=== PATIENT | female | born 1975 ===

== ENCOUNTER 2016-07-14 07:16 | Day surgery (SDC) | payer OTHER ==
[2016-07-14 07:48] VITALS: BMI 25.4
[2016-07-14] MEDS ORDERED: Midazolam 2 MG/2 ML VIAL ONE (09:19)
[2016-07-14] MEDS ORDERED: Propofol 10 mg/ml Inj (20 ML) ONE (09:19)
[2016-07-14 09:51] VITALS: O2SAT 100
[2016-07-14 10:07] VITALS: PULSE 73
[2016-07-14 10:54] VITALS: BP 95/63; RESP 20; TEMP 97.1
== END 2016-07-14 10:53 | disposition home or self-care (01) ==
LOC: C.ENDO 07:16
PROVIDERS: ATTEND Internal Medicine Gastroenterology
DX: K29.70 Gastritis, unspecified, without bleeding (principal); R10.13 Epigastric pain; Z87.11 Personal history of peptic ulcer disease

== ENCOUNTER 2016-08-07 09:47 | Emergency (ER) | payer OTHER ==
[2016-08-07 09:51] VITALS: BMI 26.2
[2016-08-07 09:53] VITALS: BP 99/64; PULSE 77; RESP 18; TEMP 97.5; O2SAT 95
== END 2016-08-07 11:25 | disposition left against medical advice (07) ==
LOC: C.ER 09:47
DX: N63 Unspecified lump in breast (principal); Z02.9 Encounter for administrative examinations, unspecified

== ENCOUNTER 2016-11-11 07:27 | Emergency (ER) | payer OTHER ==
[2016-11-11 07:28] VITALS: BMI 26.2
[2016-11-11 07:35] VITALS: TEMP 98.3
[2016-11-11] MEDS ORDERED: Lidocaine 5% Patch TD STA (07:56)
[2016-11-11] MEDS ORDERED: Lidocaine 5% Patch TD ONE (08:02)
--- NOTE | 2016-11-11 08:09 | C.PDOC ---
History Of Present Illness 41 year old female with history of herniated disk and chronic back pain complains of low back pain which radiates down the left leg up to the back of knee. Patient states the back pain started 4 days ago and was mild and dull, gradually worsened and 2 days ago after getting out of bed developed shooting pain down the leg. She has been taking aleve and flexeril with minimal relief. Denies any injury, incontinence, numbness, weakness. Time Seen by Provider: 11/11/16 07:46 Chief Complaint (Nursing): Lower Extremity Problem/Injury History Per: Patient History/Exam Limitations: no limitations Onset/Duration Of Symptoms: Days Current Symptoms Are (Timing): Still Present Quality Of Discomfort: Dull, Aching Severity: Moderate Past Medical History Reviewed: Historical Data, Nursing Documentation, Vital Signs Vital Signs: Last Vital Signs Temp 98.3 F 11/11/16 07:35 Pulse 85 11/11/16 09:06 Resp 18 11/11/16 09:06 BP 105/64 11/11/16 09:06 Pulse Ox 98 11/11/16 09:06 - Medical History PMH: Anxiety, Arthritis, Asthma, Back Problems, Bronchitis, Gastritis, Personality Disorder Surgical History: - [facility] Procedures ANESTH INJECT SYMP NERVE (11/15/14) INCIS VULVA/PERINEUM NEC (01/10/15) INJECT/INFUSE NEC (02/03/14) Family History: States: No Known Family Hx - Social History Hx Tobacco Use: Yes Hx Alcohol Use: Yes Hx Substance Use: No - Immunization History Hx Tetanus Toxoid Vaccination: Yes Hx Influenza Vaccination: Yes Hx Pneumococcal Vaccination: Yes Review Of Systems Except As Marked, All Systems Reviewed And Found Negative. Constitutional: Negative for: Fever Gastrointestinal: Negative for: Nausea, Vomiting Musculoskeletal: Positive for: Back Pain, Leg Pain Neurological: Negative for: Weakness, Numbness Physical Exam - Physical Exam Appears: Non-toxic, No Acute Distress Skin: Warm, Dry, No Rash Head: Atraumatic, Normacephalic Eye(s): bilateral: Normal Inspection Neck: Normal ROM, No Midline Cervical Tenderness, No Paracervical Tenderness Chest: Symmetrical Cardiovascular: Rhythm Regular, No Murmur Respiratory: Normal Breath Sounds, No Accessory Muscle Use Gastrointestinal/Abdominal: Bowel Sounds (active), Soft, No Tenderness, No Distention, No Guarding Back: Normal Inspection (no swelling, erythema or ecchymosis), No Decreased ROM , Paraspinal Tenderness (Lumbar), Straight Leg Raising (45 degrees on left side) Extremity: Normal ROM, No Deformity, No Swelling Neurological/Psych: Oriented x3, Normal Speech Gait: Steady ED Course And Treatment O2 Sat by Pulse Oximetry: 99 (room air ) Pulse Ox Interpretation: Normal Medical Decision Making Medical Decision Making: Impression: low back pain Plan: * Tylenol * Reassess and Disposition Progress: Patient treated with analgesics Disposition Counseled Patient/Family Regarding: Need For Followup, Rx Given - Disposition Referrals: Wilmer Enrique DO [Staff Provider] - Disposition: HOME/ ROUTINE Disposition Time: 09:05 Condition: GOOD Additional Instructions: Please apply patch to area of pain for 12 hours then remove until following day May take Tylenol or Motrin for pain as needed and muscle relaxant Follow up with your doctor or pain management if the pain persists Prescriptions: Lidocaine 5% [Lidoderm] 1 ea TD DAILY #10 patch Instructions: Lumbar Radiculopathy (ED) - POA Present On Arrival: None - Clinical Impression Clinical Impression: Lumbar radiculopathy
[2016-11-11 09:07] VITALS: BP 105/64; PULSE 85; RESP 18
[2016-11-11 09:12] VITALS: O2SAT 99
== END 2016-11-11 09:07 | disposition home or self-care (01) ==
LOC: C.ER 07:27
DX: M54.16 Radiculopathy, lumbar region (principal)
CPT/HCPCS: 96372; 99284; J1885

== ENCOUNTER 2017-01-01 11:54 | Emergency (ER) | payer OTHER ==
[2017-01-01 11:55] VITALS: BMI 26.2
[2017-01-01] MEDS ORDERED: Sodium Chloride 0.9% 1,000 ML IV ONE (13:41)
[2017-01-01] MEDS ORDERED: Sodium Chloride 0.9% 1,000 ML ONE (14:24)
[2017-01-01 14:27] LABS: BASO % 0.3 % (0.0-2.0); EOS # 0.1 K/uL (0.0-0.7); EOS % 1.6 % (0.0-4.0); HEMATOCRIT 38.7 % (34.0-47.0); LYMPH # 1.6 K/uL (1.0-4.3); LYMPH % 25.5 % (20.0-40.0); MEAN CELL VOLUME 95.2 fL (81.0-99.0); MEAN CORPUSCULAR HEMOGLOBIN 31.4 pg (27.0-31.0); MEAN PLATELET VOLUME 7.3 fL (7.2-11.7); MONO # 0.3 K/uL (0.0-0.8); MONO % 4.5 % (0.0-10.0); RED CELL DISTRIBUTION WIDTH 14.8 % (11.5-14.5); WHITE BLOOD COUNT 6.5 K/uL (4.8-10.8)
[2017-01-01 14:37] LABS: ALB/GLOB RATIO 1.4 (1.0-2.1); ALKALINE PHOSPHATASE 68 U/L (38-126); ALT/SGPT 31 U/L (9-52); AST/SGOT 23 U/L (14-36); BILIRUBIN,TOTAL 0.7 mg/dL (0.2-1.3); BLOOD UREA NITROGEN 11 mg/dL (7-17); CALCIUM 8.7 mg/dl (8.6-10.4); CARBON DIOXIDE 25 mmol/L (22-30); CHLORIDE 103 mmol/L (98-107); GFR AFRICAN-AMERICAN > 60; GLUCOSE,RANDOM 89 mg/dL (65-105); POTASSIUM 3.5 mmol/L (3.6-5.2); SODIUM 142 mmol/L (132-148); TOTAL PROTEIN 6.8 g/dL (6.3-8.3)
[2017-01-01 15:00] LABS: RBC URINE 3 /hpf (0-3); URINE BILIRUBIN NEGATIVE (NEGATIVE); URINE BLOOD NEGATIVE (NEGATIVE); URINE COLOR Yellow (YELLOW); URINE GLUCOSE (UA) NORMAL (Normal); URINE KETONE TRACE mg/dL (NEGATIVE); URINE LEUKOCYTE ESTERASE NEG Leu/uL (Negative); URINE PROTEIN NEGATIVE (NEGATIVE); URINE UROBILINOGEN NORMAL mg/dL (0.2-1.0); WBC URINE 1 /hpf (0-5)
--- NOTE | 2017-01-01 15:25 | C.PDOC ---
Time Seen by Provider: 01/01/17 13:10 Chief Complaint (Nursing): Abdominal Pain History Per: Patient, Family Onset/Duration Of Symptoms: Days (about 1 week), Waxing/Waning Current Symptoms Are (Timing): Still Present Severity: Moderate Location Of Pain/Discomfort: RUQ, RLQ Associated Symptoms: Nausea, Diarrhea Exacerbating Factors: Food Alleviating Factors: None Recent travel outside of the [place]: No Additional History Per: Prior Records Abnormal Vaginal Bleeding: No Past Medical History Reviewed: Historical Data, Nursing Documentation, Vital Signs Vital Signs: Last Vital Signs Temp 98.4 F 01/01/17 12:05 Pulse 87 01/01/17 12:05 Resp 17 01/01/17 12:05 BP 99/62 L 01/01/17 12:05 Pulse Ox 100 01/01/17 12:05 - Medical History PMH: Anxiety, Arthritis, Asthma, Back Problems, Bronchitis, Gastritis, Personality Disorder Surgical History: Endoscopy, - [facility] Procedures ANESTH INJECT SYMP NERVE (11/15/14) INCIS VULVA/PERINEUM NEC (01/10/15) INJECT/INFUSE NEC (02/03/14) Family History: States: Unknown Family Hx - Social History Hx Tobacco Use: Yes Hx Alcohol Use: Yes Hx Substance Use: No - Immunization History Hx Tetanus Toxoid Vaccination: Yes Hx Influenza Vaccination: Yes Hx Pneumococcal Vaccination: Yes Review Of Systems Except As Marked, All Systems Reviewed And Found Negative. Constitutional: Negative for: Fever Cardiovascular: Negative for: Chest Pain Respiratory: Negative for: Shortness of Breath Gastrointestinal: Positive for: Nausea, Abdominal Pain, Diarrhea. Negative for : Vomiting, Melena, Hematochezia, Hematemesis Genitourinary: Negative for: Dysuria Musculoskeletal: Positive for: Back Pain. Negative for: Neck Pain Skin: Negative for: Rash Neurological: Negative for: Weakness, Numbness, Seizures Physical Exam - Physical Exam Appears: Non-toxic, No Acute Distress Skin: Normal Color, Warm, Dry, No Rash Head: Atraumatic, Normacephalic Eye(s): bilateral: Normal Inspection, PERRL, EOMI Oral Mucosa: Moist Neck: Normal ROM, Supple Cardiovascular: Rhythm Regular Respiratory: Normal Breath Sounds, No Accessory Muscle Use Gastrointestinal/Abdominal: Soft, Tenderness (right sided), No Distention, No Guarding, No Rebound Extremity: Normal ROM Neurological/Psych: Oriented x3, Normal Motor, Normal Sensation ED Course And Treatment - Laboratory Results Result Diagrams: 01/01/17 14:23 01/01/17 14:23 Lab Interpretation: No Acute Changes Urine POC: Negative O2 Sat by Pulse Oximetry: 100 Pulse Ox Interpretation: Normal Progress Note: Pt feels much better and wants to go home. No abdominal pain or tenderness. Reassessment Condition: Improved Progress - Interventions Interventions:: Observation, Intravenous fluid - Medications Administered Oral: Other (Bentyl) Intravenous: Antiemetic, H-2 mary - Data Reviewed Data Reviewed: Lab, Old records - Patient Status Patient status: Mostly improved - Continuity of Care Discussed patient case with:: Patient, Family-HIPPA compliant, ED Nurse - Patient Plan Patient Plan: Discharge, F/U with PCP, Continue present meds Disposition Counseled Patient/Family Regarding: Studies Performed, Diagnosis, Need For Followup, Rx Given - Disposition Referrals: Kelin Sevilla MD [Staff Provider] - Disposition: HOME/ ROUTINE Disposition Time: 15:25 Condition: IMPROVED Additional Instructions: Drink plenty of fluids. Follow up with your Communications Engineering Technician within 1 week for further evaluation and treatment. Return to the ER if you develop fever, vomiting, bloody stools, worsening of symptoms or if you have any other concerns. Prescriptions: Dicyclomine [Bentyl] 20 mg PO QID PRN #20 tab PRN Reason: Irritable Bowel Symptoms L.acidoph,Paracasei, B.lactis [Probiotic] 1 each PO TID #30 capsule Metronidazole [Flagyl] 500 mg PO BID #14 tablet Pantoprazole Sodium [Protonix] 40 mg PO DAILY #14 ect Instructions: Abdominal Pain (ED) Forms: [employer] (Swiss) - Clinical Impression Clinical Impression: Diarrhea, Abdominal pain
[2017-01-01 15:46] VITALS: BP 91/66; PULSE 71; RESP 16; TEMP 98; O2SAT 99
== END 2017-01-01 15:46 | disposition home or self-care (01) ==
LOC: C.ER 11:54
DX: R10.11 Right upper quadrant pain (principal); R19.7 Diarrhea, unspecified
CPT/HCPCS: 80053; 81001; 83690; 84703; 85025; 96361; 96374; 96375; 99284; J2765; J7040

== ENCOUNTER 2017-03-20 07:43 | Day surgery (SDC) | payer OTHER ==
[2017-03-17 13:47] VITALS: BMI 27.6
[2017-03-20] MEDS ORDERED: Lactated Ringer's 1,000 ML IV ONE ×2 (10:45→13:00)
[2017-03-20] MEDS ORDERED: Propofol 10 mg/ml Inj (20 ML) ONE (10:46)
[2017-03-20] MEDS ORDERED: Midazolam 2 MG/2 ML VIAL ONE (10:46)
[2017-03-20] MEDS ORDERED: cefOXitin IV 1 gm in Dextrose 1 GM/50 ML BAG IVPB ONE (10:50)
[2017-03-20] MEDS ORDERED: Lidocaine Hydrochloride 5 ML INJ ONE (11:08)
[2017-03-20] MEDS ORDERED: HYDROmorphone 0.5 mg/0.5 ml ISec IVP PRN (11:24)
[2017-03-20 11:36] VITALS: O2SAT 100
[2017-03-20 13:33] VITALS: RESP 16
[2017-03-20 13:48] VITALS: BP 99/64; PULSE 84; TEMP 97.4
--- NOTE | 2017-03-27 08:50 | PCM.SURG1 ---
Surgeon's Initial Post Op Note - Surgeon's Notes Surgeon: dr jackson Legal Document Specialist: none Type of Anesthesia: General LMA Anesthesia Administered By: dr singh Pre-Operative Diagnosis: 41 yr aub r/o polyp Operative Findings: see the op reort Post-Operative Diagnosis: same with polyp Operation Performed: see the op report Specimen/Specimens Removed: ecc. emc. polyp Estimated Blood Loss: EBL {In ML}: 20 Blood Products Given: N/A Drains Used: No Drains Post-Op Condition: Good Date of Surgery/Procedure: 03/27/17 Time of Surgery/Procedure: 11:00
--- NOTE | 2017-03-27 18:57 | OP ---
PROCEDURE DATE: PREOPERATIVE DIAGNOSES: A 41-year-old with abnormal uterine bleeding and pelvic pain. POSTOPERATIVE DIAGNOSES: A 41-year-old with abnormal uterine bleeding and pelvic pain and an endometrial polyp on the posterior wall of the uterus. PROCEDURE PERFORMED: Dilation and curettage, hysteroscopy and MyoSure. SURGEON: Hugh Mccrary MD. NEEDLE LOOM SETTER SURGEON: None. TYPE OF ANESTHESIA: General anesthesia. ANESTHESIA ADMINISTERED BY: Dr. Mulligan. FINDINGS: Text. ESTIMATED BLOOD LOSS: 140 mL. COMPLICATIONS: None. DESCRIPTION OF PROCEDURE: After informed consent, the patient was brought to the operating room, placed on the table, general anesthesia was given. Once the anesthesia was given, the patient was prepped and draped in the normal sterile fashion. Anterior lip of the cervix was grasped with a tenaculum, gentle dilatation of the cervix was done. Hysteroscope was introduced and found polyp on the posterior wall of the uterus. After that, decision again was to use the MyoSure. MyoSure was used to remove the polyp. The pictures were taken before and after. After that, sharp curettage of anterior mcgregor of the uterus was done, then the cervical tissue was removed. After that, the hysteroscope was reintroduced and was found to be clean. The tenaculum was taken out. The patient tolerated the procedure well. Lap, sponge and instrument counts were correct x2. Hugh Mccrary MD
== END 2017-03-20 13:49 | disposition home or self-care (01) ==
LOC: C.SDS 07:43
PROVIDERS: ATTEND Obstetrics & Gynecology
DX: D25.9 Leiomyoma of uterus, unspecified (principal); N92.0 Excessive and frequent menstruation with regular cycle; N93.9 Abnormal uterine and vaginal bleeding, unspecified
CPT/HCPCS: 58563; 88305; J0694; J1100; J1170; J1885; J2250; J2405; J2704; J2765; J3010; J7120

== ENCOUNTER 2017-04-23 05:46 | Inpatient (IN) | payer OTHER ==
[2017-03-17 13:47] VITALS: BMI 27.6
[2017-04-23] MEDS ORDERED: Midazolam 2 MG/2 ML VIAL ONE (07:10)
[2017-04-23] MEDS ORDERED: Propofol 10 mg/ml Inj (20 ML) ONE (07:10)
[2017-04-23] MEDS ORDERED: Lactated Ringer's 1,000 ML IV ONE ×4 (07:43→11:41)
[2017-04-23] MEDS: cefOXitin IV 1 gm in Dextrose 2 GM/100 ML BAG IVPB ONE ×2 (07:45→07:55)
[2017-04-23] MEDS ORDERED: Methylene Blue 10 mg/mL(10ml) IV ONE (08:56)
[2017-04-23] MEDS ORDERED: Oxycodone/Acetaminophen 5/325 mg Tab PO PRN (09:23)
--- NOTE | 2017-04-23 09:27 | PCM.SURG1 ---
Surgeon's Initial Post Op Note - Surgeon's Notes Surgeon: dr jackson Invoice Machine Operator: dr laguna/dr sung Type of Anesthesia: General Endo Anesthesia Administered By: dr plata Pre-Operative Diagnosis: 41 yr pelvic pain pain and abnotrmal uterine vb Operative Findings: see the op report Post-Operative Diagnosis: same Operation Performed: total hystrectomy/b/l sapingectomy Specimen/Specimens Removed: uterus. b/l tubes. cervix Estimated Blood Loss: EBL {In ML}: 350 Blood Products Given: N/A Drains Used: No Drains Post-Op Condition: Good Date of Surgery/Procedure: 04/23/17 Time of Surgery/Procedure: 10:00
[2017-04-23] MEDS ORDERED: cefOXitin IV 1 gm in Dextrose 1 GM/50 ML BAG IVPB SCH (09:30)
[2017-04-23] MEDS ORDERED: HYDROmorphone 0.5 mg/0.5 ml ISec IVP PRN (09:45)
[2017-04-23] MEDS: Lactated Ringer's 1,000 ML IV SCH ×2 (11:50→18:04)
[2017-04-23] MEDS: Simethicone 80 mg Chewtab PO SCH ×3 (14:00→22:58)
[2017-04-23] MEDS: Oxycodone/Acetaminophen 5/325 mg Tab PO PRN (21:47)
[2017-04-24] MEDS: cefOXitin IV 1 gm in Dextrose 1 GM/50 ML BAG IVPB SCH ×2 (00:20→08:16)
[2017-04-24] MEDS: Oxycodone/Acetaminophen 5/325 mg Tab PO PRN ×4 (01:50→21:55)
[2017-04-24 07:28] LABS: HEMOGLOBIN 11.8 g/dL (11.0-16.0); MEAN CELL VOLUME 94.8 fL (81.0-99.0); MEAN CORPUSCULAR HEMOGLOBIN 32.5 pg (27.0-31.0); MEAN CORPUSCULAR HGB CONC 34.3 g/dL (33.0-37.0); MEAN PLATELET VOLUME 8.3 fL (7.2-11.7); RBC 3.61 Mil/uL (3.80-5.20); WHITE BLOOD COUNT 9.7 K/uL (4.8-10.8)
--- NOTE | 2017-04-24 08:28 | CP.PCM.PN ---
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 Mccrary's Service Patient was seen and examined at bedside. Patient reports she is ambulating, tolerating diet, voiding freely, and passing gas. Denied bowel movement. Pain is moderate/ severe - well controlled with pain medications. Denied fever, chills, headache, SOB, chest pain, abdominal pain, n/v/d, or urinary symptoms. Objective - Vital Signs/Intake and Output Vital Signs (last 24 hours): Temp Pulse Resp BP Pulse Ox 99.1 F 73 20 98/58 L 97 04/24/17 01:00 04/24/17 01:00 04/24/17 01:00 04/24/17 01:00 04/24/17 01:00 Intake and Output: 04/24/17 04/24/17 06:59 18:59 Output Total 400 Balance -400 - Medications Medications: Current Medications Bisacodyl (Dulcolax) 10 mg PO ONCE ONE Stop: 04/24/17 09:25 Ferrous Sulfate (Feosol) 325 mg PO DAILY [facility] Last Admin: 04/23/17 12:00 Dose: Not Given Hydromorphone/Sodium Chloride (Dilaudid Geodetic Surveyor Technologist) 6 mg IV Q4H PRN; Protocol PRN Reason: Pain, moderate (4-7) Last Admin: 04/23/17 12:30 Dose: 6 mg Lactated Ringer's (Lactated Ringer's) 1,000 mls @ 125 mls/hr IV .Q8H [facility] Last Admin: 04/23/17 18:04 Dose: 125 mls/hr Cefoxitin Sodium (Mefoxin Iv 1 Gm Duplex) 1 gm in 50 mls @ 50 mls/hr IVPB Q8H [facility] Stop: 04/24/17 09:29 Last Admin: 04/24/17 08:16 Dose: 50 mls/hr Ibuprofen (Motrin Tab) 600 mg PO Q4 PRN PRN Reason: Pain, Mild (1-3) Oxycodone/Acetaminophen (Percocet 5/325 Mg Tab) 1 tab PO Q4H PRN PRN Reason: Pain, moderate (4-7) Stop: 04/26/17 09:24 Oxycodone/Acetaminophen (Percocet 5/325 Mg Tab) 2 tab PO Q4H PRN PRN Reason: Pain, severe (8-10) Stop: 04/26/17 09:24 Last Admin: 04/24/17 07:05 Dose: 2 tab Simethicone (Mylicon Chew Tab) 80 mg PO QID [facility] Last Admin: 04/23/17 22:58 Dose: Not Given - Labs Labs: 04/24/17 07:18 - Constitutional Appears: No Acute Distress - Head Exam Head Exam: NORMAL INSPECTION, NORMOCEPHALIC - Eye Exam Eye Exam: EOMI, Normal appearance Pupil Exam: NORMAL ACCOMODATION - ENT Exam ENT Exam: Mucous Membranes Moist, Normal Exam - Respiratory Exam Respiratory Exam: Clear to Ausculation Bilateral, NORMAL BREATHING PATTERN - Cardiovascular Exam Cardiovascular Exam: REGULAR RHYTHM, RRR, +S1, +S2 - GI/Abdominal Exam GI & Abdominal Exam: Soft, Normal Bowel Sounds. absent: Distended, Tenderness Additional comments: Incision is clean/dry/ intact - Extremities Exam Extremities Exam: Normal Inspection. absent: Pedal Edema, Tenderness - Neurological Exam Neurological Exam: Alert, Awake, Oriented x3 - Psychiatric Exam Psychiatric exam: Normal Affect, Normal Mood - Skin Skin Exam: Dry, Intact, Normal Color, Warm Assessment and Plan - Assessment and Plan (Free Text) Assessment: 41 yo s/p total hysterectomy, bilateral salpingectomy 2/2 abnormal uterine bleeding, pelvic pain. Plan: S/P Hysterectomy, bilateral salpingectomy POD #1 Monitor Hemoglobin Cefoxitin x2 bags, LR @ 125cc/hr Motrin, Percocet PRN for pain Colace TID, Simethicone QID Prophylactic Measures DVT PPX: SCDs, encouraged ambulation DW Roxy Weinberg DO, PGY-1
[2017-04-24] MEDS ORDERED: Bisacodyl 5mg EC Tab PO ONE (09:24)
[2017-04-24] MEDS: Simethicone 80 mg Chewtab PO SCH ×4 (09:52→21:55)
--- NOTE | 2017-04-25 06:31 | CP.PCM.PN ---
Subjective - Date & Time of Evaluation Date of Evaluation: 04/25/17 Time of Evaluation: 07:30 - Subjective Subjective: pt was seen at bed side, c/o pain from last time. nbette with pain meds.no n.v, +flatus abd mild ten incision clean and dry ext no edema,no calf ten Objective - Vital Signs/Intake and Output Vital Signs (last 24 hours): Temp Pulse Resp BP Pulse Ox 98.1 F 73 20 95/60 L 98 04/24/17 20:00 04/24/17 20:00 04/24/17 20:00 04/24/17 20:00 04/24/17 20:00 Intake and Output: 04/24/17 04/25/17 18:59 06:59 Output Total 250 Balance -250 - Medications Medications: Current Medications Docusate Sodium (Colace) 100 mg PO TID [facility] Last Admin: 04/24/17 18:16 Dose: 100 mg Ferrous Sulfate (Feosol) 325 mg PO DAILY [facility] Last Admin: 04/24/17 09:52 Dose: 325 mg Hydromorphone/Sodium Chloride (Dilaudid Electroneurodiagnostic Technician) 6 mg IV Q4H PRN; Protocol PRN Reason: Pain, moderate (4-7) Last Admin: 04/23/17 12:30 Dose: 6 mg Lactated Ringer's (Lactated Ringer's) 1,000 mls @ 125 mls/hr IV .Q8H [facility] Last Admin: 04/23/17 18:04 Dose: 125 mls/hr Ibuprofen (Motrin Tab) 600 mg PO Q4 PRN PRN Reason: Pain, Mild (1-3) Last Admin: 04/24/17 18:16 Dose: 600 mg Oxycodone/Acetaminophen (Percocet 5/325 Mg Tab) 1 tab PO Q4H PRN PRN Reason: Pain, moderate (4-7) Stop: 04/26/17 09:24 Oxycodone/Acetaminophen (Percocet 5/325 Mg Tab) 2 tab PO Q4H PRN PRN Reason: Pain, severe (8-10) Stop: 04/26/17 09:24 Last Admin: 04/24/17 21:55 Dose: 2 tab Simethicone (Mylicon Chew Tab) 80 mg PO QID [facility] Last Admin: 04/24/17 21:55 Dose: 80 mg Zolpidem Tartrate (Ambien) 5 mg PO HS PRN PRN Reason: Insomnia - Labs Labs: 04/24/17 07:18 - GI/Abdominal Exam GI & Abdominal Exam: Soft, Tenderness (mild) Assessment and Plan - Assessment and Plan (Free Text) Assessment: 41 yr s/ toltal hystrectomy/b/l saplingectomy with pain Plan: plan pain meds emcourage ambulation cont post op care reat cbc/cmp anticipate discharge tomorrow
[2017-04-25] MEDS: Oxycodone/Acetaminophen 5/325 mg Tab PO PRN ×5 (06:32→22:50)
[2017-04-25 08:22] LABS: MEAN CELL VOLUME 95.1 fL (81.0-99.0); MEAN CORPUSCULAR HEMOGLOBIN 32.4 pg (27.0-31.0); MEAN CORPUSCULAR HGB CONC 34.1 g/dL (33.0-37.0); MEAN PLATELET VOLUME 8.2 fL (7.2-11.7); RBC 2.96 Mil/uL (3.80-5.20); RED CELL DISTRIBUTION WIDTH 14.2 % (11.5-14.5); WHITE BLOOD COUNT 7.2 K/uL (4.8-10.8)
[2017-04-25 08:25] LABS: HEMOGLOBIN 9.6 g/dL (11.0-16.0)
[2017-04-25 08:31] VITALS: O2SAT 99
[2017-04-25] MEDS: Simethicone 80 mg Chewtab PO SCH ×4 (10:24→22:58)
[2017-04-25] MEDS ORDERED: Influenza Vaccine 60 mcg/0.5 mL SYR (4YR UP) IM ONE (16:00)
[2017-04-26] MEDS: Oxycodone/Acetaminophen 5/325 mg Tab PO PRN (06:50)
[2017-04-26 07:46] VITALS: RESP 18
[2017-04-26 08:43] VITALS: BP 91/54; PULSE 87; TEMP 98
[2017-04-26] MEDS: Simethicone 80 mg Chewtab PO SCH (09:39)
--- NOTE | 2017-04-26 10:23 | CP.PCM.PN ---
Subjective - Date & Time of Evaluation Date of Evaluation: 04/26/17 Time of Evaluation: 10:20 - Subjective Subjective: Pt is s/p [place] with BSO, POD #2 clinically stable. Pt reports doing well, ambulating, tolerating po, passing gas. Pt reports adequate pain control with current medications. Objective - Vital Signs/Intake and Output Vital Signs (last 24 hours): Temp Pulse Resp BP Pulse Ox 98 F 87 18 91/54 L 99 04/26/17 08:00 04/26/17 08:00 04/26/17 08:00 04/26/17 08:00 04/26/17 08:00 - Medications Medications: Current Medications Docusate Sodium (Colace) 100 mg PO TID [facility] Last Admin: 04/26/17 09:39 Dose: 100 mg Ferrous Sulfate (Feosol) 325 mg PO DAILY [facility] Last Admin: 04/26/17 09:39 Dose: 325 mg Hydromorphone/Sodium Chloride (Dilaudid General Duty Nurse) 6 mg IV Q4H PRN; Protocol PRN Reason: Pain, moderate (4-7) Last Admin: 04/23/17 12:30 Dose: 6 mg Lactated Ringer's (Lactated Ringer's) 1,000 mls @ 125 mls/hr IV .Q8H [facility] Last Admin: 04/23/17 18:04 Dose: 125 mls/hr Ibuprofen (Motrin Tab) 600 mg PO Q4 PRN PRN Reason: Pain, Mild (1-3) Last Admin: 04/24/17 18:16 Dose: 600 mg Simethicone (Mylicon Chew Tab) 80 mg PO QID [facility] Last Admin: 04/26/17 09:39 Dose: 80 mg Zolpidem Tartrate (Ambien) 5 mg PO HS PRN PRN Reason: Insomnia Last Admin: 04/25/17 22:50 Dose: 5 mg - Labs Labs: 04/25/17 08:18 - Constitutional Appears: Well - Eye Exam Eye Exam: EOMI - Respiratory Exam Respiratory Exam: Clear to Ausculation Bilateral, NORMAL BREATHING PATTERN - Cardiovascular Exam Cardiovascular Exam: REGULAR RHYTHM - GI/Abdominal Exam GI & Abdominal Exam: Normal Bowel Sounds - Rectal Exam Rectal Exam: Deferred - Extremities Exam Extremities Exam: Normal Inspection - Neurological Exam Neurological Exam: Oriented x3 Assessment and Plan (1) Status post total abdominal hysterectomy Status: Resolved - Assessment and Plan (Free Text) Assessment: D/C home F/U with Dr Mccrary in 2 weeks Pelvic rest for 2 weeks. Plan: D/C Home.
--- NOTE | 2017-04-28 07:33 | OP ---
PROCEDURE DATE: 04/23/2017 PREOPERATIVE DIAGNOSIS: A 41-year-old 2, para 2 with abnormal uterine bleeding and pelvic pain. POSTOPERATIVE DIAGNOSIS: A 41-year-old 2, para 2 with abnormal uterine bleeding and pelvic pain. PROCEDURES PERFORMED: Total abdominal hysterectomy and bilateral salpingectomy. SURGEON: Hugh Mccrary M.D. MOTTLE LAY UP OPERATOR: Dr. Wells, and Dr. Angeles who were present throughout the surgery for retraction, exposure, and helping with the hysterectomy. TYPE OF ANESTHESIA: General anesthesia. ANESTHESIOLOGIST: Angel Purvis M.D. ESTIMATED BLOOD LOSS: 350 mL. COMPLICATIONS: None. DESCRIPTION OF PROCEDURE: After informed consent was obtained, the patient was brought to the operating room, placed on the table, where general anesthesia was given. Once the anesthesia was given, she was prepped and draped in the normal sterile fashion. At the site of the previous skin incision, an incision was made with a knife; the subcutaneous cut with a Bovie. The fascia was then excised on both the sides using curved Smith scissors. The fascia was from the site of the umbilicus and the rectus muscle. The rectus muscle was lifted up with two Allis scissors which was cut with a knife under the abdominal cavity. The uterus was about 8-week size. The ovaries were normal. The abdomen was packed with wet laps, four laps were placed and retractor was placed and the uterus was retracted out with a corkscrew. After that, the round ligament on the left side was taken out with a LigaSure, then there was a hole made in the peritoneum. Broad ligament was peritoneum. After that, the utero-ovarian ligament was taken with two Heaneys. It was cut and then suture tied up. The same thing was done on the right side. After that, the bladder flap was created, it was removed. Bladder was pushed down completely with the sponge and the stick till the pelvic visceral fascia was observed. After that, the uterine artery on the left side was taken down with two Heaneys and it was cut and suture tied up. The same thing was done on the left side. Then after that, the uterosacral ligament was taken with a Katina, it was cut and suture ligated. The same thing was done on the left side. After that, the uterosacral ligament was taken. After the cardinal ligament was taken; it was cut and suture ligated. After that, the Katina was placed and then was used and an incision was made and total hysterectomy was done. After total abdominal hysterectomy was done, it was sent to Pathology. After that, the stump was closed using 2-0 Vicryl in interrupted fashion. A lot of irrigation was done and found to be hemostatic. tubes on both sides were then taken out with a LigaSure, bilateral salpingectomy was done. A lot of irrigation was done and found to be hemostatic. After that, some FloSeal was placed and found to be hemostatic. All the laps were removed. was closed in a nonlocking fashion. Muscle was closed using 2-0 Vicryl in running interlocking fashion. The fascia was closed using #1 Vicryl in running interlocking fashion. Subcutaneous tissue was closed with 0 Vicryl in interrupted fashion. Skin was closed with 4-0 Monocryl on straight needle. Patient tolerated the procedure well. Lap, sponge, and instrument count were correct x2. Hugh Mccrary MD
== END 2017-04-26 10:23 | disposition home or self-care (01) | DRG 359 ==
LOC: C.9S 05:46 → C.4M 12:05
PROVIDERS: ADMIT Obstetrics & Gynecology; ATTEND Obstetrics & Gynecology
PROC: 0UT70ZZ Resection of Bilateral Fallopian Tubes, Open Approach (ICD-10-PCS; 2017-04-23)
PROC: 0UT90ZZ Resection of Uterus, Open Approach (ICD-10-PCS; principal; 2017-04-23 07:30)
DX: D25.9 Leiomyoma of uterus, unspecified (principal); N93.9 Abnormal uterine and vaginal bleeding, unspecified; R10.2 Pelvic and perineal pain

== ENCOUNTER 2017-04-29 14:21 | Emergency (ER) | payer OTHER ==
[2017-04-29 14:22] VITALS: BMI 27.6
[2017-04-29] MEDS ORDERED: Sodium Chloride 0.9% 1,000 ML IV ONE ×2 (16:16→19:17)
--- NOTE | 2017-04-29 16:24 | C.PDOC ---
History Of Present Illness 41 year old female presents to the ED for evaluation of severe pelvic pain. Patient underwent hysterectomy by Dr. Mccrary on 04/23 for abnormal uterine bleeding. Patient states she was able to have bowel movements for 2-3 days following the surgery, but has not been able to have a bowel movement or pass gas since then. Patient also noted blood in her urine and states she cannot feel the sensation to urinate. Patient reports chills at night, feels like she has a fever and has not been able to eat or drink. She states her pain is worse than any pain she experienced prior to the surgery and has been taking Percocet every 2 hours without relief. Patient denies nausea, vomiting, back pain. Time Seen by Provider: 04/29/17 16:01 Chief Complaint (Nursing): Abdominal Pain History Per: Patient History/Exam Limitations: no limitations Onset/Duration Of Symptoms: Days Current Symptoms Are (Timing): Still Present Radiation Of Pain To:: None Quality Of Discomfort: "Pain" Associated Symptoms: Fever, Chills, Constipation, Urinary Symptoms (blood in urine ). denies: Nausea, Vomiting, Back Pain Last Bowel Movement: Days Ago Additional History Per: Patient Past Medical History Reviewed: Historical Data, Nursing Documentation, Vital Signs Vital Signs: Last Vital Signs Temp 98.3 F 04/29/17 18:00 Pulse 86 04/29/17 18:00 Resp 18 04/29/17 18:00 BP 108/72 04/29/17 18:00 Pulse Ox 100 04/29/17 18:00 - Medical History PMH: Anxiety (WHEN AWAKEENED FROM ANESTHESIA), Arthritis, Asthma, Back Problems , Bronchitis, Gastritis, Personality Disorder Denies: Chronic Kidney Disease Surgical History: Endoscopy, - [facility] Procedures ANESTH INJECT SYMP NERVE (11/15/14) INCIS VULVA/PERINEUM NEC (01/10/15) INJECT/INFUSE NEC (02/03/14) RESECTION OF BILATERAL FALLOPIAN TUBES, OPEN APPROACH (04/23/17) RESECTION OF UTERUS, OPEN APPROACH (04/23/17) Family History: States: Unknown Family Hx - Social History Hx Tobacco Use: Yes Hx Alcohol Use: No Hx Substance Use: No - Immunization History Hx Tetanus Toxoid Vaccination: No Hx Influenza Vaccination: Yes Hx Pneumococcal Vaccination: No Review Of Systems Constitutional: Positive for: Fever, Chills Gastrointestinal: Positive for: Constipation. Negative for: Nausea, Vomiting Genitourinary: Positive for: Pelvic Pain Physical Exam - Physical Exam Appears: Non-toxic, Other (uncomfortable ) Skin: Normal Color, Warm, Dry Head: Atraumatic, Normacephalic Eye(s): bilateral: Normal Inspection Oral Mucosa: Moist Neck: Supple Chest: Symmetrical, No Deformity, No Tenderness Cardiovascular: Rhythm Regular, No Murmur Respiratory: Normal Breath Sounds, No Rales, No Rhonchi, No Wheezing Gastrointestinal/Abdominal: No Bowel Sounds, Soft, Tenderness (diffuse), Guarding, No Rebound, Other (well-healing wound. no erythema or drainage. ) Extremity: Normal ROM, Capillary Refill (less than 2 seconds ) Neurological/Psych: Oriented x3, Normal Speech, Normal Cognition Gait: Steady ED Course And Treatment - Laboratory Results Result Diagrams: 04/29/17 17:36 04/29/17 17:36 Lab Interpretation: No Acute Changes O2 Sat by Pulse Oximetry: 100 (on RA) Pulse Ox Interpretation: Normal - Other Rad Obstructive series X-Ray: Viewed By Me, Read By Radiologist Interpretation: No evidence of obstruction. Normal gas pattern. Increased stool. Progress Note: Bloodwork, urinalysis, Obstructive Series abdomen ordered and reviewed. Morphine IVP and IV Fluids administered. Reevaluation Time: 20:51 Reassessment Condition: Improved Disposition Counseled Patient/Family Regarding: Studies Performed, Diagnosis, Need For Followup - Disposition Referrals: Hugh Mccrary MD [Staff Provider] - Disposition: HOME/ ROUTINE Disposition Time: 20:51 Condition: IMPROVED Additional Instructions: Ensure to drink plenty of fluids and be as active as possible. Encourage plenty of walking and movement. Try Milk of Magnesia at bedtime to help with your bowel movements in the morning. Instructions: Gas and Bloating (ED), Abdominal Pain (ED), Constipation (ED) Forms: [facility] (Swiss) - Clinical Impression Clinical Impression: Abdominal pain, Constipation - Scribe Statement The provider has reviewed the documentation as recorded by the Scribe (Keya Alfaro) Provider Attestation: All medical record entries made by the Scribe were at my direction and personally dictated by me. I have reviewed the chart and agree that the record accurately reflects my personal performance of the history, physical exam, medical decision making, and the department course for this patient. I have also personally directed, reviewed, and agree with the discharge instructions and disposition.
[2017-04-29] MEDS ORDERED: Sodium Chloride 0.9% 1,000 ML ONE (16:33)
--- NOTE | 2017-04-29 17:33 | RAD ---
PROCEDURE: Radiographs of the chest and abdomen (obstructive series) HISTORY: abd pain COMPARISON: CT abdomen pelvis with contrast performed 12/17/16 TECHNIQUE: AP radiograph of the chest, with upright and supine radiographs of the abdomen. FINDINGS: CHEST: Examination limited by habitus. The cardiomediastinal silhouette appears within normal limits of size. Please note that chest x-ray has limited sensitivity for the detection of pulmonary masses. ABDOMEN AND PELVIS: Nonobstructive bowel gas pattern. No definite free air. No acute osseous abnormality is detected. IMPRESSION: No acute findings identified as above.
[2017-04-29 17:43] LABS: BASO % 0.6 % (0.0-2.0); EOS # 0.1 K/uL (0.0-0.7); EOS % 1.5 % (0.0-4.0); HEMOGLOBIN 12.5 g/dL (11.0-16.0); LYMPH # 1.5 K/uL (1.0-4.3); LYMPH % 21.9 % (20.0-40.0); MEAN CELL VOLUME 95.2 fL (81.0-99.0); MEAN CORPUSCULAR HEMOGLOBIN 31.4 pg (27.0-31.0); MEAN CORPUSCULAR HGB CONC 32.9 g/dL (33.0-37.0); MEAN PLATELET VOLUME 7.5 fL (7.2-11.7); MONO # 0.7 K/uL (0.0-0.8); NEUT # 4.7 K/uL (1.8-7.0); RBC 3.97 Mil/uL (3.80-5.20); RED CELL DISTRIBUTION WIDTH 14.5 % (11.5-14.5); WHITE BLOOD COUNT 7.1 K/uL (4.8-10.8)
[2017-04-29 18:01] VITALS: TEMP 98.3
[2017-04-29 18:11] LABS: ALB/GLOB RATIO 1.3 (1.0-2.1); ALBUMIN 3.9 g/dL (3.5-5.0); ALT/SGPT 31 U/L (9-52); AST/SGOT 25 U/L (14-36); BLOOD UREA NITROGEN 16 mg/dL (7-17); CALCIUM 8.1 mg/dl (8.6-10.4); GFR AFRICAN-AMERICAN > 60; GFR NON-AFRICAN AMERICAN > 60
[2017-04-29 18:59] LABS: SQUAMOUS EPITHIAL 1 /hpf (0-5); URINE BACTERIA RARE (<OCC); URINE BILIRUBIN NEGATIVE (NEGATIVE); URINE BLOOD 2+ (NEGATIVE); URINE CLARITY Clear (Clear); URINE COLOR Yellow (YELLOW); URINE GLUCOSE (UA) NORMAL (Normal); URINE LEUKOCYTE ESTERASE NEG Leu/uL (Negative); URINE NITRATE NEGATIVE (NEGATIVE); URINE PROTEIN NEGATIVE (NEGATIVE)
[2017-04-29] MEDS ORDERED: Magnesium Hydroxide Susp 30 ml UD PO STA (19:48)
[2017-04-29] MEDS ORDERED: Magnesium Hydroxide Susp 30 ml UD ONE (20:22)
[2017-04-29 21:06] VITALS: BP 105/72; PULSE 92; RESP 16; O2SAT 98
== END 2017-04-29 21:05 | disposition home or self-care (01) ==
LOC: C.ER 14:21
DX: K59.00 Constipation, unspecified (principal); R10.2 Pelvic and perineal pain; Z87.891 Personal history of nicotine dependence
CPT/HCPCS: 74022; 80053; 81001; 85025; 96361; 96374; 99284; J2270; J7040

== ENCOUNTER 2017-05-17 11:48 | Emergency (ER) | payer OTHER ==
[2017-05-17 11:48] VITALS: BMI 27.6
--- NOTE | 2017-05-17 12:45 | C.PDOC ---
History Of Present Illness 41-YEAR-OLD FEMALE, PRESENTS TO THE EMERGENCY DEPARTMENT WITH COMPLAINTS OF NEW ONSET R FACIAL SWELLING SINCE YESTERDAY. DENIES DENTAL PAIN, FEVER, CHILLS, TRAUMA. NO ITCH. EXAM NONTOXIC HEENT +R LOWER FACIAL SWELL NONPITTING NONTEND; NO DENTAL TEND. B/L EYES NEG SKIN NO RASH, ERYTHEMA REMAINDER NEG Time Seen by Provider: 05/17/17 12:09 Chief Complaint (Nursing): ENT Problem History Per: Patient History/Exam Limitations: no limitations Past Medical History Reviewed: Historical Data, Nursing Documentation, Vital Signs Vital Signs: Last Vital Signs Temp 98.4 F 05/17/17 14:25 Pulse 85 05/17/17 14:25 Resp 18 05/17/17 14:25 BP 92/60 L 05/17/17 14:25 Pulse Ox 99 05/17/17 16:53 - Medical History PMH: Anxiety (WHEN AWAKEENED FROM ANESTHESIA), Arthritis, Asthma, Back Problems , Bronchitis, Gastritis, Personality Disorder Surgical History: Endoscopy, - [facility] Procedures ANESTH INJECT SYMP NERVE (11/15/14) INCIS VULVA/PERINEUM NEC (01/10/15) INJECT/INFUSE NEC (02/03/14) RESECTION OF BILATERAL FALLOPIAN TUBES, OPEN APPROACH (04/23/17) RESECTION OF UTERUS, OPEN APPROACH (04/23/17) Family History: States: No Known Family Hx - Social History Hx Tobacco Use: Yes Hx Alcohol Use: Yes Hx Substance Use: No - Immunization History Hx Tetanus Toxoid Vaccination: No Hx Influenza Vaccination: Yes (03/2017) Hx Pneumococcal Vaccination: No Review Of Systems Except As Marked, All Systems Reviewed And Found Negative. Constitutional: Negative for: Fever, Chills Cardiovascular: Negative for: Chest Pain, Palpitations Respiratory: Negative for: Shortness of Breath Gastrointestinal: Negative for: Nausea, Vomiting Physical Exam - Physical Exam Appears: Non-toxic, No Acute Distress Skin: Warm, Dry, No Rash Head: Atraumatic, Normacephalic, Other (+R LOWER FACIAL SWELL NONPITTING NONTEND ; NO DENTAL TEND) Eye(s): bilateral: Normal Inspection, PERRL, EOMI Nose: Normal Oral Mucosa: Moist Lips: Normal Appearing, Other (NO ANGIOEDEMA) Neck: Normal ROM Chest: Symmetrical Cardiovascular: Rhythm Regular, No Murmur Respiratory: Normal Breath Sounds, No Accessory Muscle Use Extremity: Normal ROM Neurological/Psych: Oriented x3, Normal Speech ED Course And Treatment - Laboratory Results Result Diagrams: 05/17/17 13:09 05/17/17 13:09 Urine POC: Negative O2 Sat by Pulse Oximetry: 99 (on RA) Pulse Ox Interpretation: Normal Progress - Re-Evaluation Re-evaluation Note: 05/17/17 16:52 EXAM UNCH PRIOR NARD. PENDING CALLBACK [facility] 05/17/17 16:57 D/W DR AVERY [facility] ADVISES FOR TRANSFER TO [facility]. - Data Reviewed Data Reviewed: Lab, Diagnostic imaging - Continuity of Care Discussed pt. case with senior staff consultant/specialty: Other ([facility]) Disposition Counseled Patient/Family Regarding: Studies Performed, Diagnosis - Disposition Disposition: Trans to Other Acute Care Hosp Disposition Time: 16:58 Condition: STABLE Forms: [facility] (Italian) - POA Present On Arrival: None - Clinical Impression Clinical Impression: Dental abscess - Scribe Statement The provider has reviewed the documentation as recorded by the Scribe (Ian Lovell) All medical record entries made by the Scribe were at my direction and personally dictated by me. I have reviewed the chart and agree that the record accurately reflects my personal performance of the history, physical exam, medical decision making, and the department course for this patient. I have also personally directed, reviewed, and agree with the discharge instructions and disposition.
[2017-05-17 13:17] LABS: BASO % 0.6 % (0.0-2.0); EOS # 0.1 K/uL (0.0-0.7); EOS % 1.1 % (0.0-4.0); HEMOGLOBIN 11.4 g/dL (11.0-16.0); LYMPH # 1.5 K/uL (1.0-4.3); MEAN CELL VOLUME 93.2 fL (81.0-99.0); MEAN CORPUSCULAR HEMOGLOBIN 31.2 pg (27.0-31.0); MEAN CORPUSCULAR HGB CONC 33.5 g/dL (33.0-37.0); MEAN PLATELET VOLUME 7.2 fL (7.2-11.7); MONO # 0.6 K/uL (0.0-0.8); MONO % 10.1 % (0.0-10.0); NEUT # 4.1 K/uL (1.8-7.0); NEUT % 65.2 % (50.0-75.0); RBC 3.66 Mil/uL (3.80-5.20); RED CELL DISTRIBUTION WIDTH 14.2 % (11.5-14.5); WHITE BLOOD COUNT 6.3 K/uL (4.8-10.8)
[2017-05-17 13:28] LABS: BLOOD UREA NITROGEN 9 mg/dL (7-17); GFR AFRICAN-AMERICAN > 60; GFR NON-AFRICAN AMERICAN > 60
[2017-05-17] MEDS ORDERED: Iodixanol 320 mg/ml 150 ml Bottle IV ONE (14:04)
[2017-05-17 14:27] VITALS: RESP 18
[2017-05-17] MEDS ORDERED: MethylPREDNISolone 40 mg Vial IVP STA (15:20)
[2017-05-17] MEDS ORDERED: MethylPREDNISolone 40 mg Vial ONE (15:30)
--- NOTE | 2017-05-17 15:43 | CT ---
PROCEDURE: CT MAXILLOFACIAL BONES WITH CONTRAST HISTORY: R FACIAL SWELL RO ABSCESS COMPARISON: None. TECHNIQUE: Contiguous axial CT images of the maxillofacial bones were obtained following administration of IV contrast. Coronal and sagittal reformats were generated. Intravenous contrast Dose: 100 mL Visipaque 320 Radiation dose: Total exam DLP = 693.23 mGy-cm. This CT exam was performed using one or more of the following dose reduction techniques: Automated exposure control, adjustment of the mA and/or kV according to patient size, and/or use of iterative reconstruction technique. FINDINGS: NASAL BONES: Unremarkable. ORBITS: Unremarkable. PARANASAL SINUSES/ MASTOIDS: Chronic right maxillary sinusitis. MAXILLA: Extensive apical lucency about right 2nd maxillary molar consistent with apical abscess. There is cortical breakthrough best evident on series 602, image 27. There is cortical breakthrough of 8 roof of the right 3rd maxillary molar, likely from prior infection as there is no lucency surrounding this root currently. There is cellulitis over the right maxilla and mandible with associated thickening of the right latissimus muscle. There is no soft tissue abscess appreciated. Please note that evaluation is somewhat limited due to beam hardening artifact arising from metallic dental fillings. MANDIBLE/ TEMPOROMANDIBULAR JOINTS: Unremarkable. SKULL BASE: Unremarkable. TEMPORAL BONES: Middle ears and mastoid grossly unremarkable. OTHER FINDINGS: Mildly enlarged right-sided cervical nodes involving the level 1 and 2 nodes. Unremarkable parotid and submandibular glands. IMPRESSION: Apical abscess about the right 2nd maxillary molar with adjacent cellulitis but no evidence of soft tissue abscess. Probable sympathetic right maxillary sinusitis, chronic.
[2017-05-17] MEDS ORDERED: Clindamycin 300 MG in Sodium Chloride 0.9% 50 ML IV STA (16:53)
[2017-05-17 17:43] VITALS: BP 109/77; PULSE 91; TEMP 97.8; O2SAT 100
== END 2017-05-17 17:55 | disposition short-term general hospital (02) ==
LOC: C.ER 11:48
DX: K04.7 Periapical abscess without sinus (principal)
CPT/HCPCS: 70481; 80048; 85025; 96365; 96375; 99283; J1885; J2920; Q9967

== ENCOUNTER 2017-08-10 14:42 | Emergency (ER) | payer SELFPAY ==
[2017-08-10 15:00] VITALS: BMI 25.4
[2017-08-10] MEDS ORDERED: Sodium Chloride 0.9% 1,000 ML IV ONE (16:00)
[2017-08-10 16:14] LABS: HCG,QUALITATIVE URINE NEGATIVE (NEGATIVE)
[2017-08-10] MEDS ORDERED: Sodium Chloride 0.9% 1,000 ML ONE (16:15)
[2017-08-10 16:16] LABS: SQUAMOUS EPITHIAL 6 /hpf (0-5); URINE BACTERIA RARE (<OCC); URINE BILIRUBIN NEGATIVE (NEGATIVE); URINE BLOOD NEGATIVE (NEGATIVE); URINE CLARITY Hazy (Clear); URINE COLOR Yellow (YELLOW); URINE GLUCOSE (UA) NORMAL (Normal); URINE LEUKOCYTE ESTERASE NEG Leu/uL (Negative); URINE PROTEIN 1+ mg/dL (NEGATIVE); URINE UROBILINOGEN NORMAL mg/dL (0.2-1.0)
[2017-08-10 16:29] LABS: BASO # 0.1 K/uL (0.0-0.2); BASO % 0.8 % (0.0-2.0); EOS # 0.2 K/uL (0.0-0.7); EOS % 1.5 % (0.0-4.0); LYMPH # 1.9 K/uL (1.0-4.3); LYMPH % 18.5 % (20.0-40.0); MEAN CORPUSCULAR HEMOGLOBIN 31.5 pg (27.0-31.0); MEAN CORPUSCULAR HGB CONC 34.3 g/dL (33.0-37.0); MEAN PLATELET VOLUME 7.6 fL (7.2-11.7); MONO # 0.9 K/uL (0.0-0.8); MONO % 8.4 % (0.0-10.0); NEUT # 7.3 K/uL (1.8-7.0); NEUT % 70.8 % (50.0-75.0); RBC 4.12 Mil/uL (3.80-5.20); RED CELL DISTRIBUTION WIDTH 15.5 % (11.5-14.5); WHITE BLOOD COUNT 10.4 K/uL (4.8-10.8)
[2017-08-10 16:39] LABS: ALB/GLOB RATIO 1.2 (1.0-2.1); ALBUMIN 4.1 g/dL (3.5-5.0); ALT/SGPT 20 U/L (9-52); AST/SGOT 29 U/L (14-36); BLOOD UREA NITROGEN 18 mg/dL (7-17); CALCIUM 8.8 mg/dl (8.6-10.4); GFR AFRICAN-AMERICAN > 60; GFR NON-AFRICAN AMERICAN > 60; LIPASE 158 U/L (23-300)
--- NOTE | 2017-08-10 17:14 | CT ---
PROCEDURE: CT scan of the abdomen pelvis dated 08/10/2017. HISTORY: Right sided flank, RLQ tenderness r/o stone COMPARISON: Comparison made with prior CT scan abdomen pelvis 12/17/2016. TECHNIQUE: Contiguous axial images of the abdomen and pelvis. Oral contrast was administered. No IV contrast given. Coronal and Sagittal reformats generated. Radiation dose: Total exam DLP = This CT exam was performed using one or more of the following dose reduction techniques: Automated exposure control, adjustment of the mA and/or kV according to patient size, and/or use of iterative reconstruction technique. FINDINGS: LOWER THORAX: Minimal the passive/dependent type atelectasis both posterior lower lung zones. Lung bases otherwise clear. No infiltrate effusion or basilar pneumothorax. Heart size within range of normal. . Small hiatal hernia. LIVER: Unremarkable. No gross lesion or ductal dilatation. GALLBLADDER AND BILE DUCTS: Gallbladder is incompletely distended which in part accounts for thick-walled appearance. Findings likely due to nonfasting state. PANCREAS: Unremarkable. No mass. No ductal dilatation. SPLEEN: Unremarkable. No splenomegaly. ADRENALS: Unremarkable. KIDNEYS AND URETERS: Unremarkable. No stone or hydronephrosis. BLADDER: Urinary bladder incompletely distended which may in part account for slight thick-walled appearance. Cystitis not excluded. . REPRODUCTIVE: Interval hysterectomy. Large apparently partially septated cystic structure right aspect of the pelvis that measures approximately 5.7 x 4.3 cm consistent with an ovarian cyst. Pelvic ultrasound followup could be performed if necessary. APPENDIX: Normal-appearing appendix best seen on axial image number [id number]. BOWEL: Evaluation of the bowel is somewhat limited due to the lack of oral contrast material. . The stomach is partially distended with food debris liquid and air. The visualized loops of small bowel exhibit normal contour and caliber. No evidence of acute mechanical small bowel obstruction. Stool and air seen throughout the large bowel. There does appear to be an occasional colonic diverticulum the sigmoid and distal descending colon however no radiographic evidence of acute diverticulitis. PERITONEUM: Unremarkable. No fluid collection. No free air. LYMPH NODES: Unremarkable. No enlarged lymph nodes. VASCULATURE: Unremarkable. No aortic aneurysm. BONES: No fracture or destructive lesion. OTHER FINDINGS: None. IMPRESSION: Status post hysterectomy. Large right ovarian cyst. Followup ultrasound could be performed if necessary. No evidence of nephrolithiasis or hydronephrosis. No evidence of acute appendicitis. Few scattered colonic diverticula without radiographic evidence of acute diverticulitis.
--- NOTE | 2017-08-10 17:31 | C.PDOC ---
History Of Present Illness <Taylor Marvin - Last Filed: 08/10/17 19:10> <Latasha Glass - Last Filed: 08/11/17 04:43> 41-year-old female, s/p hysterectomy, presents to the emergency department with complaints right sided back/flank pain that started at 7:30pm last night. Pain is persistent in nature, radiating to right groin. Pain worsens with movement and palpation. patient notes associated nausea and episodes of non-bloody/non- bilious vomiting. Patient denies fevers, chills, chest pain, shortness of breath , or any other associated symptoms. No other complaints at this time. (Taylor Marvin) History Per: Patient History/Exam Limitations: no limitations Onset/Duration Of Symptoms: Days <Taylor Marvin - Last Filed: 08/10/17 19:10> <Latasha Glass - Last Filed: 08/11/17 04:43> Time Seen by Provider: 08/10/17 15:37 Chief Complaint (Nursing): Female Genitourinary Past Medical History Reviewed: Historical Data, Nursing Documentation, Vital Signs - Medical History PMH: Anxiety (WHEN AWAKEENED FROM ANESTHESIA), Arthritis, Asthma, Back Problems , Bronchitis, Gastritis, Personality Disorder Denies: Chronic Kidney Disease Surgical History: Endoscopy, Family History: States: No Known Family Hx - Social History Hx Tobacco Use: Yes Hx Alcohol Use: No Hx Substance Use: No - Immunization History Hx Tetanus Toxoid Vaccination: No Hx Influenza Vaccination: Yes (03/2017) Hx Pneumococcal Vaccination: No <Taylor Marvin - Last Filed: 08/10/17 19:10> Vital Signs: Last Vital Signs Temp 97.9 F 08/10/17 20:20 Pulse 86 08/10/17 20:20 Resp 16 08/10/17 20:20 BP 130/81 08/10/17 20:20 Pulse Ox 100 08/10/17 20:20 - [facility] Procedures ANESTH INJECT SYMP NERVE (11/15/14) INCIS VULVA/PERINEUM NEC (01/10/15) INJECT/INFUSE NEC (02/03/14) RESECTION OF BILATERAL FALLOPIAN TUBES, OPEN APPROACH (04/23/17) RESECTION OF UTERUS, OPEN APPROACH (04/23/17) Review Of Systems Constitutional: Negative for: Fever, Chills Respiratory: Negative for: Cough, Shortness of Breath Gastrointestinal: Positive for: Nausea, Vomiting Genitourinary: Positive for: Other ((+)foul odor urine). Negative for: Dysuria , Hematuria, Vaginal Discharge, Vaginal Bleeding Musculoskeletal: Positive for: Back Pain Skin: Negative for: Rash <Taylor Marvin - Last Filed: 08/10/17 19:10> Physical Exam - Physical Exam Appears: Non-toxic, No Acute Distress Skin: Normal Color, Warm, Dry, No Rash Head: Atraumatic, Normacephalic Eye(s): bilateral: PERRL Nose: Normal Oral Mucosa: Moist Lips: Normal Appearing Neck: Normal ROM Chest: Symmetrical Cardiovascular: Rhythm Regular, No Murmur Respiratory: Normal Breath Sounds, No Accessory Muscle Use Gastrointestinal/Abdominal: Soft, Tenderness (RLQ), No Guarding, No Rebound Back: CVA Tenderness (right) Extremity: Normal ROM, No Deformity, No Swelling Neurological/Psych: Oriented x3, Normal Speech, Normal Motor Gait: Steady <Taylor Marvin - Last Filed: 08/10/17 19:10> ED Course And Treatment - Laboratory Results Result Diagrams: 08/10/17 16:24 08/10/17 16:24 O2 Sat by Pulse Oximetry: 100 (RA) Pulse Ox Interpretation: Normal Progress Note: CT scan ordered. which shows enlarged right ovarian. Pelvic US ordered to r/o torsion Reevaluation Time: 18:00 (No improvement, Morphine ordered) Reassessment Condition: Unchanged <Taylor Marvin - Last Filed: 08/10/17 19:10> - Laboratory Results Result Diagrams: 08/10/17 16:24 08/10/17 16:24 <Latasha Glass - Last Filed: 08/11/17 04:43> Medical Decision Making <Taylor Marvin - Last Filed: 08/10/17 19:10> <Latasha Glass - Last Filed: 08/11/17 04:43> Medical Decision Making: Plan: * CT Abd/Pel * CMP, Lipase * CBC * IVF, Toradol, Zofran * Urine Culture * UA/HCG (Taylor Marvin) Disposition - Disposition Disposition Time: 19:11 <Taylor Marvin - Last Filed: 08/10/17 19:10> <Latasha Glass - Last Filed: 08/11/17 04:43> - Disposition Referrals: Landy Del Valle MD [Staff Provider] - Disposition: HOME/ ROUTINE Condition: STABLE Prescriptions: Naproxen [Naprosyn] 500 mg PO BID #20 tablet Instructions: Ovarian Cysts, Ovarian Cyst Removal (DC) Forms: Work/School/Gym Excuse, [facility] (Azeri) - Clinical Impression Clinical Impression: Abdominal pain - Scribe Statement The provider has reviewed the documentation as recorded by the Scribe (Ian Lovell) <Taylor Marvin - Last Filed: 08/10/17 19:10> <Latasha Glass - Last Filed: 08/11/17 04:43> - Scribe Statement All medical record entries made by the Scribe were at my direction and personally dictated by me. I have reviewed the chart and agree that the record accurately reflects my personal performance of the history, physical exam, medical decision making, and the department course for this patient. I have also personally directed, reviewed, and agree with the discharge instructions and disposition. (Taylor Marvin) Physician Patient Turnover Patient Signed Over To: Latasha Glass Handoff Comments: Pending Ultrasound and disposition <Taylor Marvin - Last Filed: 08/10/17 19:10> Addendum <Taylor Marvin - Last Filed: 08/10/17 19:10> <Latasha Glass - Last Filed: 08/11/17 04:43> Addendum: 08/11/17 04:42 My sign out from ANYA Marvin was to check the pelvic US to r/o ovarian torsion.Study was neg for torsion,pt was released (Latasha Glass)
[2017-08-10] MEDS ORDERED: Morphine 4 MG/ML VIAL ONE (17:45)
[2017-08-10 18:16] VITALS: TEMP 97.9
[2017-08-10 19:12] VITALS: O2SAT 100
[2017-08-10 20:21] VITALS: BP 130/81; PULSE 86; RESP 16
--- NOTE | 2017-08-11 13:37 | US ---
Pelvic ultrasound History: Right pelvic pain. Comparison: None available. Technique: Real-time sonography was performed through the pelvis. Findings: Status post hysterectomy. Right ovary: 6.5 x 5.5 x 5.4 centimeters. Normal flow. Prominent septated cyst with thickened internal septation in the right ovary measuring 5.8 x 4.5 x 5.3 centimeters. Left ovary: 2.0 x 1.7 x 1.8 centimeters. Normal flow. No free fluid in the pelvic cul-de-sac. Impression: Prominent septated cyst in the right ovary measuring up to 5.8 centimeters. Follow-up ultrasound in a 4-6 week interval may be helpful if clinically indicated. These findings were preliminarily reported at 7:29 p.m. on 08/10/[address] Michael Albert from [facility].
== END 2017-08-10 20:22 | disposition home or self-care (01) ==
LOC: C.ER 14:42
DX: R10.31 Right lower quadrant pain (principal)
CPT/HCPCS: 74176; 76830; 76856; 80053; 81001; 83690; 84703; 85025; 87086; 96361; 96374; 96375; 99285; J1885; J2270; J2405; J7040

== ENCOUNTER 2017-08-12 10:38 | Emergency (ER) | payer OTHER ==
[2017-08-12 10:38] VITALS: BMI 25.4
[2017-08-12 11:09] VITALS: O2SAT 100
[2017-08-12] MEDS ORDERED: Sodium Chloride 0.9% 1,000 ML IV ONE (12:02)
[2017-08-12 12:29] LABS: BASO % 0.4 % (0.0-2.0); EOS # 0.1 K/uL (0.0-0.7); HEMOGLOBIN 13.2 g/dL (11.0-16.0); LYMPH # 1.1 K/uL (1.0-4.3); LYMPH % 20.8 % (20.0-40.0); MEAN CELL VOLUME 92.2 fL (81.0-99.0); MEAN CORPUSCULAR HEMOGLOBIN 31.4 pg (27.0-31.0); MEAN CORPUSCULAR HGB CONC 34.1 g/dL (33.0-37.0); MEAN PLATELET VOLUME 7.9 fL (7.2-11.7); MONO # 0.4 K/uL (0.0-0.8); MONO % 7.3 % (0.0-10.0); NEUT # 3.6 K/uL (1.8-7.0); NEUT % 69.5 % (50.0-75.0); RBC 4.21 Mil/uL (3.80-5.20); RED CELL DISTRIBUTION WIDTH 15.4 % (11.5-14.5); WHITE BLOOD COUNT 5.2 K/uL (4.8-10.8)
[2017-08-12 12:31] LABS: SQUAMOUS EPITHIAL 27 /hpf (0-5); URINE BACTERIA RARE (<OCC); URINE BILIRUBIN NEGATIVE (NEGATIVE); URINE BLOOD NEGATIVE (NEGATIVE); URINE CLARITY Hazy (Clear); URINE COLOR Yellow (YELLOW); URINE GLUCOSE (UA) NORMAL (Normal); URINE LEUKOCYTE ESTERASE TRACE Leu/uL (Negative); URINE PROTEIN NEGATIVE (NEGATIVE)
[2017-08-12] MEDS ORDERED: Sodium Chloride 0.9% 1,000 ML ONE (12:33)
[2017-08-12 12:46] LABS: ALB/GLOB RATIO 1.2 (1.0-2.1); ALBUMIN 3.9 g/dL (3.5-5.0); ALT/SGPT 25 U/L (9-52); AST/SGOT 31 U/L (14-36); BLOOD UREA NITROGEN 13 mg/dL (7-17); CALCIUM 8.8 mg/dl (8.6-10.4); GFR AFRICAN-AMERICAN > 60; GFR NON-AFRICAN AMERICAN > 60; LIPASE 82 U/L (23-300)
--- NOTE | 2017-08-12 14:20 | C.PDOC ---
History Of Present Illness 41-year-old female, s/p hysterectomy, presents to the emergency department with complaints right sided back/flank pain that started four days ago. Pain is persistent in nature, radiating to right groin. Pain worsens with movement and palpation. She was seem in ED two days ago, and diagnosed with ovarian cyst. Patient was discharged with outpatient f/u with OBGYN, but states pain has persisted, resulting in her returning to ED for further evaluation. Patient denies fevers, chills, chest pain, shortness of breath, or any other associated symptoms. No other complaints at this time. Time Seen by Provider: 08/12/17 11:31 Chief Complaint (Nursing): Abdominal Pain History Per: Patient History/Exam Limitations: no limitations Past Medical History Reviewed: Historical Data, Nursing Documentation, Vital Signs Vital Signs: Last Vital Signs Temp 97.8 F 08/12/17 15:36 Pulse 78 08/12/17 15:36 Resp 18 08/12/17 15:36 BP 96/68 L 08/12/17 15:36 Pulse Ox 100 08/12/17 15:36 - Medical History PMH: Anxiety (WHEN AWAKEENED FROM ANESTHESIA), Arthritis, Asthma, Back Problems , Bronchitis, Gastritis, Personality Disorder Denies: Chronic Kidney Disease Surgical History: Endoscopy, - [facility] Procedures ANESTH INJECT SYMP NERVE (11/15/14) INCIS VULVA/PERINEUM NEC (01/10/15) INJECT/INFUSE NEC (02/03/14) RESECTION OF BILATERAL FALLOPIAN TUBES, OPEN APPROACH (04/23/17) RESECTION OF UTERUS, OPEN APPROACH (04/23/17) Family History: States: No Known Family Hx - Social History Hx Tobacco Use: Yes Hx Alcohol Use: No Hx Substance Use: No - Immunization History Hx Tetanus Toxoid Vaccination: No Hx Influenza Vaccination: Yes (03/2017) Hx Pneumococcal Vaccination: No Review Of Systems Constitutional: Negative for: Fever, Chills Respiratory: Negative for: Cough, Shortness of Breath Gastrointestinal: Positive for: Nausea, Abdominal Pain Musculoskeletal: Positive for: Back Pain Skin: Negative for: Rash Neurological: Negative for: Weakness, Numbness, Headache, Dizziness Physical Exam - Physical Exam Appears: Non-toxic, No Acute Distress Skin: Warm, Dry, No Rash Head: Normacephalic Eye(s): bilateral: PERRL Nose: Normal Oral Mucosa: Moist Lips: Normal Appearing Neck: Normal ROM Cardiovascular: Rhythm Regular, No Murmur Respiratory: Normal Breath Sounds, No Accessory Muscle Use Gastrointestinal/Abdominal: Soft, Tenderness (mild, right-lower), No Guarding, No Rebound Extremity: Normal ROM, No Deformity, No Swelling Neurological/Psych: Oriented x3, Normal Speech ED Course And Treatment - Laboratory Results Result Diagrams: 08/12/17 12:15 08/12/17 12:15 Lab Interpretation: Normal Urine POC: Negative O2 Sat by Pulse Oximetry: 100 (RA) Pulse Ox Interpretation: Normal - CT Scan/US No standard instances Other Rad Studies (CT/US): Read By Radiologist, Radiology Report Reviewed CT/US Interpretation: FINDINGS: UTERUS: Surgically absent. RIGHT OVARY: Measure 6.2 x 6.1 x 5.8 cm, enlarged secondary to a complex cyst measuring 5.8 cm containing a septation and diffuse low-level internal echoes. Internal echoes are new compared to prior exam. Normal Doppler detected blood flow demonstrated to the ovary. LEFT OVARY: Measures 3.8 x 2.5 x 3 cm. Multiple follicles noted. Normal Doppler detected blood flow demonstrated to the ovary. FREE FLUID: No significant free fluid noted. OTHER FINDINGS: None. IMPRESSION: Complex right ovarian cyst measuring 5.8 cm. Findings may represent a hemorrhagic cyst or endometrioma. Followup pelvic ultrasound recommended in 6 weeks. Progress Note: Treated with IVF and toradol. Case discussed with Dr Mccrary who will evaluate in ED and request US Reassessment Condition: Improved - Physician Consult Information Physician Contacted: Hugh Mccrary Outcome Of Conversation: discharge to follow up as outpatient Disposition Discussed With Dr.: Hugh Mccrary Doctor Will See Patient In The: Office Counseled Patient/Family Regarding: Studies Performed, Diagnosis, Need For Followup - Disposition Referrals: Hugh Mccrary MD [Staff Provider] - Disposition: HOSPITALIZED Disposition Time: 15:30 Condition: STABLE Additional Instructions: Follow up with dr Mccrary at her office Prescriptions: Naproxen [Naprosyn] 1 tab PO BID PRN #25 tab PRN Reason: Pain oxyCODONE/Acetaminophen [Percocet 5/325 mg Tab] 1 tab PO QID PRN #10 tab PRN Reason: Pain Instructions: Ovarian Cysts Forms: [employer] (Welsh), Work Excuse - POA Present On Arrival: None - Clinical Impression Clinical Impression: Ovarian cyst, Abdominal pain - Scribe Statement The provider has reviewed the documentation as recorded by the Scribe (Ian Johnson) All medical record entries made by the Scribe were at my direction and personally dictated by me. I have reviewed the chart and agree that the record accurately reflects my personal performance of the history, physical exam, medical decision making, and the department course for this patient. I have also personally directed, reviewed, and agree with the discharge instructions and disposition.
--- NOTE | 2017-08-12 14:40 | US ---
HISTORY: vaginal bleeding. History hysterectomy. COMPARISON: Pelvic ultrasound 08/10/2017. TECHNIQUE: Grayscale and color Doppler sonographic images were obtained of the pelvis utilizing transvaginal approach. FINDINGS: UTERUS: Surgically absent. RIGHT OVARY: Measure 6.2 x 6.1 x 5.8 cm, enlarged secondary to a complex cyst measuring 5.8 cm containing a septation and diffuse low-level internal echoes. Internal echoes are new compared to prior exam. Normal Doppler detected blood flow demonstrated to the ovary. LEFT OVARY: Measures 3.8 x 2.5 x 3 cm. Multiple follicles noted. Normal Doppler detected blood flow demonstrated to the ovary. FREE FLUID: No significant free fluid noted. OTHER FINDINGS: None. IMPRESSION: Complex right ovarian cyst measuring 5.8 cm. Findings may represent a hemorrhagic cyst or endometrioma. Followup pelvic ultrasound recommended in 6 weeks.
[2017-08-12 15:40] VITALS: BP 96/68; PULSE 78; RESP 18; TEMP 97.8
== END 2017-08-12 15:36 | disposition home or self-care (01) ==
LOC: C.ER 10:38
DX: N83.209 Unspecified ovarian cyst, unspecified side (principal); R10.31 Right lower quadrant pain
CPT/HCPCS: 76830; 80053; 81001; 83690; 85025; 96361; 96374; 99285; J1885; J7040

== ENCOUNTER 2017-08-16 07:05 | Inpatient (IN) | payer OTHER ==
[2017-08-16 07:06] VITALS: BMI 25.4
[2017-08-16 08:05] LABS: BASO % 0.8 % (0.0-2.0); EOS # 0.2 K/uL (0.0-0.7); EOS % 3.6 % (0.0-4.0); HEMOGLOBIN 13.8 g/dL (11.0-16.0); LYMPH # 1.7 K/uL (1.0-4.3); LYMPH % 34.5 % (20.0-40.0); MEAN CELL VOLUME 92.5 fL (81.0-99.0); MEAN CORPUSCULAR HEMOGLOBIN 31.7 pg (27.0-31.0); MEAN CORPUSCULAR HGB CONC 34.3 g/dL (33.0-37.0); MEAN PLATELET VOLUME 7.5 fL (7.2-11.7); MONO # 0.4 K/uL (0.0-0.8); NEUT # 2.6 K/uL (1.8-7.0); NEUT % 53.1 % (50.0-75.0); NRBC % 0.1 % (0.0-2.0); RBC 4.37 Mil/uL (3.80-5.20); RED CELL DISTRIBUTION WIDTH 15.5 % (11.5-14.5)
[2017-08-16 08:15] LABS: INR 0.9
[2017-08-16 08:25] LABS: ALB/GLOB RATIO 1.3 (1.0-2.1); ALBUMIN 4.2 g/dL (3.5-5.0); ALT/SGPT 26 U/L (9-52); AST/SGOT 24 U/L (14-36); BLOOD UREA NITROGEN 14 mg/dL (7-17); CALCIUM 8.7 mg/dl (8.6-10.4); GFR AFRICAN-AMERICAN > 60; GFR NON-AFRICAN AMERICAN > 60
[2017-08-16] MEDS ORDERED: Midazolam 2 MG/2 ML VIAL ONE ×2 (09:48→11:02)
[2017-08-16] MEDS ORDERED: Propofol 10 mg/ml Inj (20 ML) ONE (09:48)
[2017-08-16] MEDS ORDERED: Rocuronium 10 mg/ml (5 ml) ONE (09:51)
--- NOTE | 2017-08-16 10:39 | CP.PCM.HP ---
History of Present Illness - History of Present Illness History of Present Illness: 41yr here cam woth c/o pain in the abdomen started 2 weeks ago and getting worse. pt taking pain meds and not working.pateint came to er for the same complain third time.no n/v, no vb. obhx 1 x /s, 1 x , 1 x still pmh den med pnv all tramadol psh ex lap hystrecomy, c/s x 1 soch smoking ciggrattes abd soft,mild tenderness on palpation ext no edema,no calf ten pelvic exam ext gen no less, right adenxal tenn sono right 5-6 cm hemmoragic cyst Present on Admission - Present on Admission Any Indicators Present on Admission: No History of DVT/PE: No History of Uncontrolled Diabetes: No Urinary Catheter: No Decubitus Ulcer Present: No Review of Systems - Gastrointestinal Gastrointestinal: Abdominal Pain Past Patient History - Infectious Disease Hx of Infectious Diseases: None - Past Medical History & Family History Past Medical History?: Yes - Past Social History Smoking Status: Light Smoker < 10 Cigarettes Daily - CARDIAC Hx Cardiac Disorders: Yes Hx Hypotension: Yes - PULMONARY Hx Asthma: Yes Hx Bronchitis: Yes - NEUROLOGICAL Hx Neurological Disorder: No - HEENT Hx HEENT Problems: No - RENAL Hx Chronic Kidney Disease: No - ENDOCRINE/METABOLIC Hx Endocrine Disorders: No - HEMATOLOGICAL/ONCOLOGICAL Hx Blood Disorders: No - INTEGUMENTARY Hx Dermatological Problems: No - MUSCULOSKELETAL/RHEUMATOLOGICAL Hx Arthritis: Yes - GASTROINTESTINAL Hx Gastritis: Yes - GENITOURINARY/GYNECOLOGICAL Hx Genitourinary Disorders: Yes (OVARIAN CYST FIBROID UTERUS) - PSYCHIATRIC Hx Anxiety: Yes (WHEN AWAKEENED FROM ANESTHESIA) Hx Substance Use: No - SURGICAL HISTORY Hx Surgeries: Yes Hx Hysterectomy: Yes - ANESTHESIA Hx Anesthesia: Yes Hx Anesthesia Reactions: Yes ( N/V, LOW B/P, PANIC ATTACKS) Hx Malignant Hyperthermia: No Meds Allergies/Adverse Reactions: Allergies Allergy/AdvReac Type Severity Reaction Status Date / Time tramadol Allergy Severe ANAPHYLAXIS Verified 08/12/17 11:04 Physical Exam - GI/Abdominal Exam GI & Abdominal Exam: Soft, Tenderness (mild ten) - Exam External exam: NORMAL EXTERNAL EXAM Bimanual exam: Adenexal Mass (+tenderness on right side) Results - Vital Signs Recent Vital Signs: Last Vital Signs Temp 98.2 F 08/16/17 08:45 Pulse 77 08/16/17 08:45 Resp 17 08/16/17 08:45 BP 108/68 08/16/17 08:45 Pulse Ox 99 08/16/17 08:45 - Labs Result Diagrams: 08/16/17 08:00 08/16/17 08:00 Labs: Laboratory Results - last 24 hr 08/16/17 08/16/17 08/16/17 08:00 08:00 08:00 WBC 5.0 RBC 4.37 Hgb 13.8 Hct 40.4 MCV 92.5 MCH 31.7 H MCHC 34.3 RDW 15.5 H Plt Count 251 MPV 7.5 Neut % (Auto) 53.1 Lymph % (Auto) 34.5 [place] % (Auto) 8.0 Eos % (Auto) 3.6 Baso % (Auto) 0.8 Neut # (Auto) 2.6 Lymph # (Auto) 1.7 [place] # (Auto) 0.4 Eos # (Auto) 0.2 Baso # (Auto) 0.0 PT 10.0 INR 0.9 APTT 33 Sodium 140 Potassium 3.9 Chloride 102 Carbon Dioxide 26 Anion Gap 15 BUN 14 Creatinine 0.7 Est GFR ( Amer) > 60 Est GFR (Non-Af Amer) > 60 Random Glucose 82 Calcium 8.7 Total Bilirubin 0.4 AST 24 ALT 26 Alkaline Phosphatase 73 Total Protein 7.5 Albumin 4.2 Globulin 3.3 Albumin/Globulin Ratio 1.3 Blood Type Antibody Screen 08/16/17 08:00 WBC RBC Hgb Hct MCV MCH MCHC RDW Plt Count MPV Neut % (Auto) Lymph % (Auto) [place] % (Auto) Eos % (Auto) Baso % (Auto) Neut # (Auto) Lymph # (Auto) [place] # (Auto) Eos # (Auto) Baso # (Auto) PT INR APTT Sodium Potassium Chloride Carbon Dioxide Anion Gap BUN Creatinine Est GFR ( Amer) Est GFR (Non-Af Amer) Random Glucose Calcium Total Bilirubin AST ALT Alkaline Phosphatase Total Protein Albumin Globulin Albumin/Globulin Ratio Blood Type B POSITIVE Antibody Screen Negative Assessment & Plan - Assessment and Plan (Free Text) Assessment: 41 yr with acute pelvic pain/right ovarian cyst Plan: plan admit to helpdesk analyst for diagnostic laproscopy poos right oophrectomy poss exlap informed consent signed npo/ivf labs OR aware Giovanny aware - Date & Time Date: 08/16/17 Time: 11:00
[2017-08-16] MEDS ORDERED: Bupivacaine HCl 0.25% PF (30 ml) Inj ONE (10:59)
[2017-08-16] MEDS ORDERED: cefOXitin IV 1 gm in Dextrose 1 GM/50 ML BAG IVPB ONE (11:00)
--- NOTE | 2017-08-16 11:06 | C.PDOC ---
History Of Present Illness 41 year old female presents to the emergency department with complaints of cyst in her lower right quadrant, abdominal pain, and right lower back pain. Patient states that she has been seen in the ED a few times over the past week, and has been recently diagnosed with a complex ovarian cyst. Patient states that the pain has not subsided, denies vaginal bleeding, vaginal discharge, nausea, vomiting, fever, dysuria or hematuria. Chief Complaint (Nursing): Abdominal Pain History Per: Patient History/Exam Limitations: no limitations Onset/Duration Of Symptoms: Days (1 week) Current Symptoms Are (Timing): Still Present Quality Of Discomfort: Unable To Describe, "Pain" Associated Symptoms: Back Pain, Other (RLQ Abdominal Pain). denies: Fever, Nausea, Vomiting, Urinary Symptoms Past Medical History Reviewed: Historical Data, Nursing Documentation, Vital Signs Vital Signs: Last Vital Signs Temp 98.1 F 08/16/17 17:41 Pulse 90 08/16/17 17:41 Resp 20 08/16/17 17:41 BP 88/53 L 08/16/17 17:41 Pulse Ox 100 08/16/17 17:41 - Medical History PMH: Anxiety (WHEN AWAKEENED FROM ANESTHESIA), Arthritis, Asthma, Back Problems , Bronchitis, Gastritis, Personality Disorder Denies: Chronic Kidney Disease Surgical History: Endoscopy, - [facility] Procedures ANESTH INJECT SYMP NERVE (11/15/14) INCIS VULVA/PERINEUM NEC (01/10/15) INJECT/INFUSE NEC (02/03/14) RESECTION OF BILATERAL FALLOPIAN TUBES, OPEN APPROACH (04/23/17) RESECTION OF UTERUS, OPEN APPROACH (04/23/17) Family History: States: No Known Family Hx - Social History Hx Tobacco Use: Yes Hx Alcohol Use: No Hx Substance Use: No - Immunization History Hx Tetanus Toxoid Vaccination: No Hx Influenza Vaccination: Yes (03/2017) Hx Pneumococcal Vaccination: No Review Of Systems Except As Marked, All Systems Reviewed And Found Negative. Constitutional: Negative for: Fever Gastrointestinal: Positive for: Abdominal Pain (RLQ). Negative for: Nausea, Vomiting Genitourinary: Negative for: Dysuria, Hematuria, Vaginal Discharge, Vaginal Bleeding Musculoskeletal: Positive for: Back Pain Physical Exam - Physical Exam Cardiovascular: Rhythm Regular Respiratory: Normal Breath Sounds Gastrointestinal/Abdominal: Tenderness (mild RLQ tenderness) Extremity: Normal ROM ED Course And Treatment - Laboratory Results Result Diagrams: 08/16/17 08:00 08/16/17 08:00 O2 Sat by Pulse Oximetry: 99 (RA) Pulse Ox Interpretation: Normal Progress Note: Dr. Mccrary, the physician who sent the patient to the emergency department, reviewed the case. Patient to be taken to [facility] for OR procedure. Medical Decision Making Medical Decision Making: Plan: Blood Bank Type and Screen CMP CBC Partial Thromboplastin Time Prothrombin Time Disposition - Disposition Disposition: HOSPITALIZED Disposition Time: 07:30 Condition: STABLE - Clinical Impression Clinical Impression: Ovarian cyst - Scribe Statement The provider has reviewed the documentation as recorded by the Scribe (Ilan Mary) Provider Attestation: All medical record entries made by the Scribe were at my direction and personally dictated by me. I have reviewed the chart and agree that the record accurately reflects my personal performance of the history, physical exam, medical decision making, and the department course for this patient. I have also personally directed, reviewed, and agree with the discharge instructions and disposition.
[2017-08-16] MEDS ORDERED: Neostigmine Methylsulfate 3mg/3ml Syringe IV ONE ×2 (12:04→12:31)
[2017-08-16] MEDS ORDERED: Morphine Monoject Barrel PCA 1mg/ml IV PRN (12:38)
[2017-08-16] MEDS ORDERED: Oxycodone/Acetaminophen 5/325 mg Tab PO PRN ×2 (12:40)
[2017-08-16] MEDS ORDERED: Lactated Ringer's 1,000 ML IV SCH (12:45)
[2017-08-16] MEDS ORDERED: Morphine 4 MG/ML VIAL ONE ×2 (12:48→13:27)
[2017-08-16] MEDS ORDERED: Lactated Ringer's 1,000 ML IV ONE (13:30)
[2017-08-16] MEDS: Simethicone 80 mg Chewtab PO SCH ×2 (14:58→16:59)
[2017-08-16 17:43] VITALS: RESP 20
[2017-08-17 07:27] LABS: HEMOGLOBIN 12.4 g/dL (11.0-16.0); MEAN CELL VOLUME 92.7 fL (81.0-99.0); MEAN CORPUSCULAR HEMOGLOBIN 31.4 pg (27.0-31.0); MEAN CORPUSCULAR HGB CONC 33.9 g/dL (33.0-37.0); MEAN PLATELET VOLUME 8.2 fL (7.2-11.7); RBC 3.94 Mil/uL (3.80-5.20)
[2017-08-17 07:29] LABS: WHITE BLOOD COUNT 14.8 K/uL (4.8-10.8)
[2017-08-17 07:50] LABS: ALB/GLOB RATIO 1.2 (1.0-2.1); ALBUMIN 3.6 g/dL (3.5-5.0); ALT/SGPT 22 U/L (9-52); AST/SGOT 23 U/L (14-36); BLOOD UREA NITROGEN 13 mg/dL (7-17); CALCIUM 8.5 mg/dl (8.6-10.4); GFR AFRICAN-AMERICAN > 60; GFR NON-AFRICAN AMERICAN > 60
[2017-08-17] MEDS ORDERED: Oxycodone/Acetaminophen 5/325 mg Tab PO PRN (08:03)
[2017-08-17] MEDS: Simethicone 80 mg Chewtab PO SCH ×5 (10:16→22:19)
[2017-08-17] MEDS: Oxycodone/Acetaminophen 5/325 mg Tab PO PRN ×2 (10:19→19:42)
[2017-08-17] MEDS ORDERED: Bisacodyl 5mg EC Tab PO ONE (12:40)
--- NOTE | 2017-08-17 22:09 | CP.PCM.PN ---
Subjective - Date & Time of Evaluation Date of Evaluation: 08/17/17 Time of Evaluation: 09:00 - Subjective Subjective: delayed entry: pt seen and examiend at 7:30am. pt preorts severe pain not controlled, p tpore not takign medicaion regularly. pt not yet ambuating, or passing faltus, pt toleratign liquid diet denites fever, chills, nause, vomiting , cps, sob Objective - Vital Signs/Intake and Output Vital Signs (last 24 hours): Temp Pulse Resp BP Pulse Ox 98.2 F 78 20 88/57 L 99 08/17/17 16:00 08/17/17 16:00 08/17/17 16:00 08/17/17 16:00 08/17/17 16:00 Intake and Output: 08/17/17 08/18/17 18:59 06:59 Intake Total 125 340 Balance 125 340 - Medications Medications: Current Medications Docusate Sodium (Colace) 100 mg PO BID [facility] Last Admin: 08/17/17 19:44 Dose: 100 mg Lactated Ringer's (Lactated Ringer's) 1,000 mls @ 125 mls/hr IV .Q8H [facility] Ibuprofen (Motrin Tab) 600 mg PO Q4 PRN PRN Reason: Pain, Mild (1-3) Oxycodone/Acetaminophen (Percocet 5/325 Mg Tab) 1 tab PO Q6H PRN PRN Reason: Pain, moderate (4-7) Stop: 08/20/17 08:04 Oxycodone/Acetaminophen (Percocet 5/325 Mg Tab) 2 tab PO Q6H PRN PRN Reason: Pain, severe (8-10) Stop: 08/20/17 08:06 Last Admin: 08/17/17 19:42 Dose: 2 tab Simethicone (Mylicon Chew Tab) 80 mg PO QID [facility] Last Admin: 08/17/17 19:42 Dose: Not Given - Labs Labs: 08/17/17 07:20 08/17/17 07:20 PT 10.0 SECONDS (9.7-12.2) 08/16/17 08:00 INR 0.9 08/16/17 08:00 APTT 33 SECONDS (21-34) 08/16/17 08:00 - Head Exam Head Exam: ATRAUMATIC, NORMAL INSPECTION - Eye Exam Eye Exam: EOMI - ENT Exam ENT Exam: Mucous Membranes Moist - Respiratory Exam Respiratory Exam: Clear to Ausculation Bilateral, NORMAL BREATHING PATTERN - Cardiovascular Exam Cardiovascular Exam: REGULAR RHYTHM, +S1, +S4 - GI/Abdominal Exam GI & Abdominal Exam: Soft, Tenderness, Normal Bowel Sounds Additional comments: TTP over lower incision , no guaring, no rebound tendnerss no rigiidty, + BSincsiocn c/d/i - Exam Additional comments: no vaginal bleeding - Neurological Exam Neurological Exam: Alert, Awake, Normal Gait - Skin Skin Exam: Dry, Intact, Normal Color, Warm Assessment and Plan (1) Ovarian cyst Assessment & Plan: 41 y/o s/p Dx Laparasscopy converted to open for ovarian cystectomy ruptures POD #1 1. Pain managment: percocet/motrin 2. Encurage ambution 3. Advance diet as tolerated: goals: regular 4. Bowel regimen: simethicone 5. AM Labs 6. Incentive spirometer, abodminal binder Status: Acute
[2017-08-18 01:23] VITALS: O2SAT 98
[2017-08-18] MEDS: Oxycodone/Acetaminophen 5/325 mg Tab PO PRN ×2 (03:46→09:11)
[2017-08-18 07:57] VITALS: BP 99/60; PULSE 96; TEMP 98.3
[2017-08-18] MEDS: Simethicone 80 mg Chewtab PO SCH (09:11)
--- NOTE | 2017-08-18 12:27 | CP.PCM.DIS ---
Provider - Provider Date of Admission: 08/16/17 07:37 Attending physician: Hugh Mccrary MD Time Spent in preparation of Discharge (in minutes): 10 Diagnosis - Discharge Diagnosis (1) Ovarian cyst Status: Acute (2) Abdominal pain Status: Acute Hospital Course - Lab Results Lab Results: Most Recent Lab Values WBC 14.8 K/uL (4.8-10.8) H D 08/17/17 07:20 RBC 3.94 Mil/uL (3.80-5.20) 08/17/17 07:20 Hgb 12.4 g/dL (11.0-16.0) 08/17/17 07:20 Hct 36.5 % (34.0-47.0) 08/17/17 07:20 MCV 92.7 fL (81.0-99.0) 08/17/17 07:20 MCH 31.4 pg (27.0-31.0) H 08/17/17 07:20 MCHC 33.9 g/dL (33.0-37.0) 08/17/17 07:20 RDW 15.0 % (11.5-14.5) H 08/17/17 07:20 Plt Count 270 K/uL (130-400) 08/17/17 07:20 MPV 8.2 fL (7.2-11.7) 08/17/17 07:20 Neut % (Auto) 53.1 % (50.0-75.0) 08/16/17 08:00 Lymph % (Auto) 34.5 % (20.0-40.0) 08/16/17 08:00 [place] % (Auto) 8.0 % (0.0-10.0) 08/16/17 08:00 Eos % (Auto) 3.6 % (0.0-4.0) 08/16/17 08:00 Baso % (Auto) 0.8 % (0.0-2.0) 08/16/17 08:00 Neut # (Auto) 2.6 K/uL (1.8-7.0) 08/16/17 08:00 Lymph # (Auto) 1.7 K/uL (1.0-4.3) 08/16/17 08:00 [place] # (Auto) 0.4 K/uL (0.0-0.8) 08/16/17 08:00 Eos # (Auto) 0.2 K/uL (0.0-0.7) 08/16/17 08:00 Baso # (Auto) 0.0 K/uL (0.0-0.2) 08/16/17 08:00 PT 10.0 SECONDS (9.7-12.2) 08/16/17 08:00 INR 0.9 08/16/17 08:00 APTT 33 SECONDS (21-34) 08/16/17 08:00 Sodium 140 mmol/L (132-148) 08/17/17 07:20 Potassium 4.1 mmol/L (3.6-5.2) 08/17/17 07:20 Chloride 100 mmol/L (98-107) 08/17/17 07:20 Carbon Dioxide 26 mmol/L (22-30) 08/17/17 07:20 Anion Gap 18 (10-20) 08/17/17 07:20 BUN 13 mg/dL (7-17) 08/17/17 07:20 Creatinine 0.6 mg/dL (0.7-1.2) L 08/17/17 07:20 Est GFR ( Amer) > 60 08/17/17 07:20 Est GFR (Non-Af Amer) > 60 08/17/17 07:20 Random Glucose 110 mg/dL (65-105) H 08/17/17 07:20 Calcium 8.5 mg/dl (8.6-10.4) L 08/17/17 07:20 Total Bilirubin 0.6 mg/dL (0.2-1.3) 08/17/17 07:20 AST 23 U/L (14-36) 08/17/17 07:20 ALT 22 U/L (9-52) 08/17/17 07:20 Alkaline Phosphatase 60 U/L (38-126) 08/17/17 07:20 Total Protein 6.6 g/dL (6.3-8.3) 08/17/17 07:20 Albumin 3.6 g/dL (3.5-5.0) 08/17/17 07:20 Globulin 2.9 gm/dL (2.2-3.9) 08/17/17 07:20 Albumin/Globulin Ratio 1.2 (1.0-2.1) 08/17/17 07:20 Blood Type B POSITIVE 08/16/17 08:00 Antibody Screen Negative 08/16/17 08:00 - Hospital Course Hospital Course: PT presented to the ER with complaints of RLQ abdominal pain. 6cm right ovarian hemorrhagic cyst was noted. Pt taken to the OR for diagnostic laparotomy, which converted to open. Right oophorectomy performed. Pt Post op did well. No complaints. Ambulating, tolerating PO diet, Denies N/V. Discharge Exam - Head Exam Head Exam: ATRAUMATIC, NORMAL INSPECTION - Eye Exam Eye Exam: EOMI, Normal appearance Pupil Exam: NORMAL ACCOMODATION - GI/Abdominal Exam GI & Abdominal Exam: Normal Bowel Sounds, Unremarkable Additional comments: INcision, C/D/I - Extremities Exam Extremities exam: full ROM Discharge Plan - Follow Up Plan Condition: STABLE Disposition: HOME/ ROUTINE Instructions: Ovarian Cyst Removal, Open Surgery, Ovarian Cyst (DC), Acute Abdominal Pain (DC), Acute Abdominal Pain (GEN) Additional Instructions: Light activity, no heavy lifting, take pain medication as suggested by the physician. Call office for follow up appointment.
[2017-08-18] MEDS ORDERED: Oxycodone/Acetaminophen 5/325 mg Tab PO PRN (12:29)
--- NOTE | 2017-08-19 19:51 | PCM.SURG1 ---
Surgeon's Initial Post Op Note - Surgeon's Notes Surgeon: dr jackson Type of Anesthesia: General LMA Anesthesia Administered By: dr burger Pre-Operative Diagnosis: 41 yr with acute pelvic pain/right ovarian cyst Operative Findings: see the op reort Post-Operative Diagnosis: same lot of omental adhesions Operation Performed: diagnostic laproscopy/eex lap right oophrectomy Specimen/Specimens Removed: right ovary and cyst Estimated Blood Loss: EBL {In ML}: 200 Blood Products Given: N/A Drains Used: No Drains Post-Op Condition: Good Date of Surgery/Procedure: 08/16/17 Time of Surgery/Procedure: 14:00
--- NOTE | 2017-08-20 11:36 | OP ---
PROCEDURE DATE: 08/16/2017 PREOPERATIVE DIAGNOSES: A 41-year-old 3, para 2 with acute pelvic pain and right ovarian cyst. POSTOPERATIVE DIAGNOSES: A 41-year-old 3, para 2 with acute pelvic pain and right ovarian cyst. SURGEON: Hugh Mccrary MD [employer]PERVISOR SURGEON: None. TYPE OF ANESTHESIA: General anesthesia. ANESTHESIOLOGIST: Luke Boyle MD COMPLICATIONS: None. PROCEDURE PERFORMED: Exploratory laparotomy, right ovarian cystectomy, and diagnostic laparoscopy. DESCRIPTION OF PROCEDURE: After informed consent was obtained, the patient was brought to the operating room and placed on the table, where general anesthesia was given. Once the anesthesia was found to be adequate, she was prepped and draped in the normal sterile fashion. Rodriguez catheter was inserted under sterile condition and then examination performed. The patient was put in sterile stirrups. At the umbilicus, Marcaine was given, incision was made. The fascia was lifted up, it was cut and then it was held up and intraabdominal placement of the Liam was confirmed during the interval of the case. There was found to be two omental adhesions. The decision was not to pursue with the laparoscopy. Liam was taken out of at the site of the previous skin incision, an incision was made with a knife; the subcutaneous cut with a Bovie. The fascia was excised on both sides using curved Smith scissors. The fascia was from the site of umbilicus and the rectus muscle was where there were a lot of adhesions in the omentum and adhesions across the right ovary. It was about 6 cm right ovarian cyst, omental adhesion and omental adhesion was taken out with the Metzenbaum scissors and the ring forceps. After these were pushed up, the right ovary was taken out with the help of Latasha. It was taken out and it was hemostatic. After lot of irrigation, it was found to be hemostatic. After that, the left ovary, we tried to visualize, but could not be visualized. A lot of irrigation was done, a lot of omental adhesions. After the lot of irrigation was done, hemostatic done, Fluorescein was applied. It was hemostatic, then the peritoneum closed using 2-0 Vicryl in interlocking fashion, fascia was closed with 2-0 Vicryl in interlocking fashion, muscles were closed with 2-0 Vicryl in an interlocking fashion. Skin was closed using 3-0 Monocryl straight needle. The patient tolerated the procedure well. Lap, sponge, and instrument counts were correct x2. Hugh Mccrary MD
== END 2017-08-18 13:50 | disposition home or self-care (01) | DRG 359 ==
LOC: C.ER 07:05 → C.9E 07:37 → C.6T 08:20 → C.9E 08:42 → C.4M 08:47
PROVIDERS: ADMIT Obstetrics & Gynecology; ATTEND Obstetrics & Gynecology
PROC: 0UB00ZZ Excision of Right Ovary, Open Approach (ICD-10-PCS; principal; 2017-08-16 10:10)
DX: N83.11 Corpus luteum cyst of right ovary (principal); J45.909 Unspecified asthma, uncomplicated; F60.9 Personality disorder, unspecified; Z90.710 Acquired absence of both cervix and uterus; F17.210 Nicotine dependence, cigarettes, uncomplicated; N83.201 Unspecified ovarian cyst, right side; K66.0 Peritoneal adhesions (postprocedural) (postinfection)

== ENCOUNTER 2017-12-24 16:03 | Emergency (ER) | payer MEDICAID, OTHER ==
--- NOTE | 2017-12-24 16:49 | C.PDOC ---
History Of Present Illness 42 y/o female, w/PMhx of anxiety and stroke ( 2 weeks ago), presents to the ER complaining of right shoulder pain, right upper arm pain, and right -sided body pain s/p fall at home today. Patient states that she was trying to cross over to the bathtub when she landed on her right shoulder. Denies having weakness and numbness. - HPI Time Seen by Provider: 12/24/17 16:17 Chief Complaint (Nursing): Trauma History Per: Patient History/Exam Limitations: no limitations Onset/Duration Of Symptoms: Hrs Severity: Moderate Past Medical History Reviewed: Historical Data, Nursing Documentation, Vital Signs Vital Signs: Last Vital Signs Temp 98.1 F 12/24/17 19:46 Pulse 78 12/24/17 19:46 Resp 20 12/24/17 19:46 BP 108/70 12/24/17 19:46 Pulse Ox 100 12/24/17 19:46 - Medical History PMH: Anxiety (WHEN AWAKEENED FROM ANESTHESIA), Arthritis, Asthma, Back Problems , Bronchitis, Gastritis, Personality Disorder Denies: Chronic Kidney Disease Surgical History: Endoscopy, - [facility] Procedures ANESTH INJECT SYMP NERVE (11/15/14) EXCISION OF RIGHT OVARY, OPEN APPROACH (08/16/17) INCIS VULVA/PERINEUM NEC (01/10/15) INJECT/INFUSE NEC (02/03/14) RESECTION OF BILATERAL FALLOPIAN TUBES, OPEN APPROACH (04/23/17) RESECTION OF UTERUS, OPEN APPROACH (04/23/17) Family History: States: No Known Family Hx - Social History Hx Tobacco Use: Yes Hx Alcohol Use: Yes Hx Substance Use: No - Immunization History Hx Tetanus Toxoid Vaccination: No Hx Influenza Vaccination: Yes (03/2017) Hx Pneumococcal Vaccination: No Review Of Systems Except As Marked, All Systems Reviewed And Found Negative. Constitutional: Negative for: Fever, Chills Musculoskeletal: Positive for: Shoulder Pain (right shoulder pain), Arm Pain ( right upper arm pain) Neurological: Negative for: Weakness, Numbness Physical Exam - Physical Exam Appears: Non-toxic, No Acute Distress Skin: Normal Color, Warm, Dry Head: Atraumatic, Normacephalic Eye(s): bilateral: Normal Inspection Nose: Normal Oral Mucosa: Moist Neck: No Midline Cervical Tenderness, Supple Chest: Symmetrical Cardiovascular: Rhythm Regular Respiratory: Normal Breath Sounds, No Rales, No Rhonchi, No Wheezing Gastrointestinal/Abdominal: Normal Exam, Soft, No Tenderness, No Guarding, No Rebound Extremity: No Normal ROM (decreased ROM in right shoulder secondary to pain), Tenderness (tenderness to right mid humerus, tenderness to right ribs), No Deformity, No Swelling Neurological/Psych: Oriented x3, Normal Speech ED Course And Treatment - Laboratory Results Result Diagrams: 12/24/17 17:25 12/24/17 17:25 O2 Sat by Pulse Oximetry: 99 (RA) Pulse Ox Interpretation: Normal Medical Decision Making Medical Decision Making: Impression: Dizziness s/p fall Plan: --Labs --EKG --Flexeril PO --Toradol IV --X-Ray- Right Shoulder --X-Ray -Right Humerus --X-Ray- Ribs w/ Chest Disposition - Disposition Referrals: [facility] [place] [facility] [place] [facility] at [facility] [Outside] [facility] [place] [Outside] Disposition: HOME/ ROUTINE Disposition Time: 19:46 Condition: GOOD Prescriptions: Cyclobenzaprine [Cyclobenzaprine HCl] 10 mg PO Q8 #15 tab Ibuprofen [Motrin] 600 mg PO Q6 #20 tab Instructions: Contusion (DC), Dizziness, Nonvertigo, (DC) Forms: [facility] (Togolese) - Clinical Impression Clinical Impression: Contusion - Scribe Statement The provider has reviewed the documentation as recorded by the Lissaibe Latrell López Provider Attestation: All medical record entries made by the Scribe were at my direction and personally dictated by me. I have reviewed the chart and agree that the record accurately reflects my personal performance of the history, physical exam, medical decision making, and the department course for this patient. I have also personally directed, reviewed, and agree with the discharge instructions and disposition.
[2017-12-24 17:31] LABS: BASO % 0.5 % (0.0-2.0); EOS # 0.1 K/uL (0.0-0.7); EOS % 1.2 % (0.0-4.0); HEMOGLOBIN 13.6 g/dL (11.0-16.0); LYMPH # 1.4 K/uL (1.0-4.3); LYMPH % 18.7 % (20.0-40.0); MEAN CELL VOLUME 94.7 fL (81.0-99.0); MEAN CORPUSCULAR HGB CONC 34.9 g/dL (33.0-37.0); MEAN PLATELET VOLUME 7.9 fL (7.2-11.7); MONO # 0.5 K/uL (0.0-0.8); MONO % 6.2 % (0.0-10.0); NEUT # 5.5 K/uL (1.8-7.0); NEUT % 73.4 % (50.0-75.0); RBC 4.11 Mil/uL (3.80-5.20); RED CELL DISTRIBUTION WIDTH 12.9 % (11.5-14.5); WHITE BLOOD COUNT 7.5 K/uL (4.8-10.8)
--- NOTE | 2017-12-24 17:37 | RAD ---
PROCEDURE: Radiographs of the right humerus. HISTORY: dizziness s/p fall COMPARISON: None. FINDINGS: BONES: No acute fracture. SOFT TISSUES: Normal. OTHER FINDINGS: None. IMPRESSION: No demonstrated fracture or dislocation.
--- NOTE | 2017-12-24 17:37 | RAD ---
Date of service: 12/24/2017 PROCEDURE: Radiographs of the Chest and Right Ribs. HISTORY: dizziness s/p fall COMPARISON: Chest radiograph dated 04/29/2017. TECHNIQUE: Frontal radiograph of the chest and multiple oblique radiographs of the right ribs were obtained. FINDINGS: RIGHT RIBS: No fracture or focal lesion visualized. LUNGS: Clear. PLEURA: No pneumothorax or pleural fluid. CARDIOVASCULAR: Normal sized heart. No pulmonary vascular congestion. OTHER FINDINGS: None. IMPRESSION: Unremarkable radiographs of the chest and right ribs. No right rib fracture.
--- NOTE | 2017-12-24 17:38 | RAD ---
Date of service: 12/24/2017 PROCEDURE: Radiographs of the Right Shoulder HISTORY: s/p fall COMPARISON: No prior. FINDINGS: BONES: No acute fracture. JOINTS: Unremarkable. SOFT TISSUES: Normal. OTHER FINDINGS: None. IMPRESSION: No demonstrated fracture or dislocation.
[2017-12-24 17:41] LABS: ALB/GLOB RATIO 1.6 (1.0-2.1); ALT/SGPT 28 U/L (9-52); AST/SGOT 16 U/L (14-36); BLOOD UREA NITROGEN 10 mg/dL (7-17); CALCIUM 8.6 mg/dl (8.6-10.4); GFR NON-AFRICAN AMERICAN > 60
[2017-12-24] MEDS ORDERED: Potassium Chloride 20 mEq ER Tab PO ONE (18:14)
[2017-12-24 18:34] LABS: SQUAMOUS EPITHIAL 10 /hpf (0-5); URINE AMORPHOUS SEDIMENT MODERATE /ul (<OCC); URINE BACTERIA RARE (<OCC); URINE BILIRUBIN NEGATIVE (NEGATIVE); URINE BLOOD 1+ (NEGATIVE); URINE CLARITY Hazy (Clear); URINE COLOR Yellow (YELLOW); URINE GLUCOSE (UA) NORMAL (Normal); URINE LEUKOCYTE ESTERASE NEG Leu/uL (Negative); URINE PROTEIN NEGATIVE (NEGATIVE)
[2017-12-24 19:47] VITALS: BP 108/70; PULSE 78; RESP 20; TEMP 98.1
[2017-12-25] MEDS ORDERED: Potassium Chloride 20 mEq ER Tab PO ONE (17:57)
--- NOTE | 2017-12-25 19:54 | CARD ---
APPROVED REPORT Date of service: 12/24/2017 EKG Measurement Heart [id number] <Conclusion> Normal sinus rhythm Normal ECG
[2017-12-30 10:26] VITALS: O2SAT 99
== END 2017-12-24 19:49 | disposition home or self-care (01) ==
LOC: C.ER 16:03
DX: T14.8XXA Other injury of unspecified body region, initial encounter (principal); W19.XXXA Unspecified fall, initial encounter; Z72.0 Tobacco use
CPT/HCPCS: 71101; 73030; 73060; 80053; 81001; 84484; 85025; 93005; 96374; 99285; J1885; J3480